=== PATIENT | female | born 1965 | race Caucasian/White ===

== ENCOUNTER 2018-09-26 17:31 | Inpatient (IN) | payer OTHER, SELFPAY ==
--- OUTSIDE RECORDS SUMMARY | 2018-09-26 17:37 | XMS REPORT | Clinical Summary ---
:1965 Author Organization [facility] Address [address] [place] [address] Care Team Providers Name Role Phone Asked, No Pcp Primary Care Provider Unavailable Allergies Active Allergy Reactions Severity Noted Date Comments Meperidine 08/16/2018 Hydromorphone 08/16/2018 States it made her amylase and lipase worse while in the hospital with last pancreatic episode Medications Medication Sig Dispensed Refills Start Date End Date Status Lactobacillus Take 1 tablet 90 tablet 0 08/21/2018 09/20/2018 acidoph-L.bulgar by mouth 3 (FLORANEX) 1 million (three) times a cell tablet day for 30 days. pantoprazole Take 1 tablet 60 tablet 0 08/21/2018 09/20/2018 (PROTONIX) 40 MG EC (40 mg total) tablet by mouth 2 (two) times a day for 30 days. levETIRAcetam (KEPPRA) Take 1 tablet 60 tablet 0 08/21/2018 09/20/2018 500 MG tablet (500 mg total) by mouth 2 (two) times a day for 30 days. 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 Encounters Date Type Specialty Care Team Description 08/28/20 Telephone Gastroenterology Jones Morgan MA 08/21/20 Patient Quality Falguni Calvo, 18 Outreach RN 08/20/20 Surgery Gastroenterology ESOPHAGOGASTRODUODENOSCOPY 18 (EGD) with cold bx 08/20/20 Anesthesia Gastroenterology [facility], 18 Event Andres Dawkins MD 08/16/20 [facility], Duodenal rupture (HCC) ( Primary Dx); 18 - Encounter Medicine Urban Diego MD Pain of upper abdomen 08/21/20 Rell, MD Germaine Au Bryan, MD 08/16/20 Travel 18 after 09/25/2017 Social History Tobacco Use Types Packs/Day Years Used Date Current Every Day Smoker Cigarettes 0.75 Smokeless Tobacco: Never Used Alcohol Use Drinks/Week oz/Week Comments No Alcohol Habits Answer Date Recorded How often do you have a drink containing alcohol? Never 08/16/2018 How many drinks containing alcohol do you have on a typical Not asked day when you are drinking? How often do you have six or more drinks on one occasion? Not asked Sex Assigned at Date Recorded Not on file Job Start Date Occupation Industry Not on file Not on file Not on file Travel History Travel Start Travel End No recent travel history available. Last Filed Vital Signs Vital Sign Reading Time Taken Blood Pressure 153/81 08/21/2018 4:44 PM [employer]IVE [employer]PERATIONS SUPERVISOR Pulse 70 08/21/2018 4:44 PM [employer]PER[employer] SUPERVISOR Temperature 36 C (96.8 F) 08/21/2018 4:44 PM [employer]PERATIONS SUPERVISOR Respiratory Rate 18 08/21/2018 4:44 PM [employer]PERATIONS SUPERVISOR Oxygen Saturation 100% 08/21/2018 4:44 PM [employer] OPERATIONS SUPERVISOR Inhaled Oxygen Concentration - - Weight 65.8 kg (145 lb) 08/21/2018 1:44 PM [employer]IVE [employer]NAL OPERATIONS SUPERVISOR Height 157.5 cm (5' 2") 08/16/2018 1:26 PM [employer]PERATIONS SUPERVISOR Body Mass Index 26.52 08/21/2018 1:44 PM [employer]IVE [employer]NAL [employer]PERATIONS SUPERVISOR Plan of Treatment Health Maintenance Due Date Last Done Comments CERVICAL CANCER SCREENING 1984 BREAST CANCER SCREENING 2013 COLON CANCER SCREENING 2013 SHINGLES VACCINES (1 of 2) 2013 INFLUENZA VACCINE 05/02/2018 Procedures Procedure Name Priority Date/Time Associated Comments Diagnosis MRI BRAIN W WO CONTRAST Routine 08/21/2018 Results for 2:21 PM [employer]ECTIVE [employer]PERATIONS SUPERVISOR this procedure are in the results section. EEG AWAKE/DROWSY LESS THAN 41 Routine 08/21/2018 Results for MIN 9:08 AM [employer]ECTIVE [employer]NAL OPERATIONS SUPERVISOR this procedure are in the results section. SURGICAL PATHOLOGY REQUEST Routine 08/20/2018 Results for 10:01 AM [employer]IVE [employer]NAL OPERATIONS SUPERVISOR this procedure are in the results section. ESOPHAGOGASTRODUODENOSCOPY (EGD) 08/20/2018 Duodenal 8:00 AM [employer]IVE [employer]NAL OPERATIONS SUPERVISOR rupture (HCC) HELICOBACTER PYLORI ABS Routine 08/19/2018 Results for 10:52 AM [employer]IVE [employer]NAL OPERATIONS SUPERVISOR this procedure are in the results section. HC COMPLETE BLD COUNT W/AUTO Routine 08/19/2018 Results for DIFF 5:20 AM [employer]IVE [employer]NAL OPERATIONS SUPERVISOR this procedure are in the results section. ESTIMATED GFR Routine 08/19/2018 Results for 4:00 AM [employer]IVE [employer]NAL OPERATIONS SUPERVISOR this procedure are in the results section. BASIC METABOLIC PANEL Routine 08/19/2018 Results for 4:00 AM [employer]IVE [employer]NAL OPERATIONS SUPERVISOR this procedure are in the results section. CLOSTRIDIUM DIFFICILE TOXIN Routine 08/18/2018 Results for 1:45 PM [employer]NAL OPERATIONS SUPERVISOR this procedure are in the results section. LIPID PANEL Routine 08/18/2018 Results for 4:00 AM [employer]IVE [employer]NAL OPERATIONS SUPERVISOR this procedure are in the results section. FL UGI W KUB Routine 08/17/2018 Results for 12:12 PM [employer]IVE [employer]NAL OPERATIONS SUPERVISOR this procedure are in the results section. PARTIAL THROMBOPLASTIN TIME Routine 08/17/2018 Results for (PTT) 5:15 AM [employer] OPERATIONS SUPERVISOR this procedure are in the results section. PROTHROMBIN TIME WITH INR Routine 08/17/2018 Results for 5:15 AM [employer]IVE [employer]NAL OPERATIONS SUPERVISOR this procedure are in the results section. HC COMPLETE BLD COUNT W/AUTO Routine 08/17/2018 Results for DIFF 5:15 AM [employer]IVE [employer]NAL OPERATIONS SUPERVISOR this procedure are in the results section. ESTIMATED GFR Routine 08/17/2018 Results for 4:00 AM [employer]IVE [employer]NAL OPERATIONS SUPERVISOR this procedure are in the results section. MAGNESIUM LEVEL Routine 08/17/2018 Results for 4:00 AM [employer]PERATIONS SUPERVISOR this procedure are in the results section. LACTIC ACID LEVEL Routine 08/17/2018 Results for 4:00 AM [employer]IVE [employer]NAL OPERATIONS SUPERVISOR this procedure are in the results section. COMPREHENSIVE METABOLIC PANEL Routine 08/17/2018 Results for 4:00 AM [employer] OPERATIONS SUPERVISOR this procedure are in the results section. POC GLUCOSE Routine 08/16/2018 Results for 6:25 PM [employer]PERATIONS SUPERVISOR this procedure are in the results section. CT ABDOMEN PELVIS W CONTRAST STAT 08/16/2018 Results for 2:49 PM [employer]PERATIONS SUPERVISOR this procedure are in the results section. URINALYSIS STAT 08/16/2018 Results for 2:14 PM [employer] OPERATIONS SUPERVISOR this procedure are in the results section. LIPASE LEVEL STAT 08/16/2018 Results for 1:44 PM [employer]PERATIONS SUPERVISOR this procedure are in the results section. ESTIMATED GFR STAT 08/16/2018 Results for 1:44 PM [employer] OPERATIONS SUPERVISOR this procedure are in the results section. HEPATIC FUNCTION PANEL STAT 08/16/2018 Results for 1:44 PM [employer]PERATIONS SUPERVISOR this procedure are in the results section. AMYLASE LEVEL STAT 08/16/2018 Results for 1:44 PM [employer]NAL [employer]PERATIONS SUPERVISOR this procedure are in the results section. COMPREHENSIVE METABOLIC PANEL STAT 08/16/2018 Results for 1:44 PM [employer]PERATIONS SUPERVISOR this procedure are in the results section. HC COMPLETE BLD COUNT W/AUTO STAT 08/16/2018 Results for DIFF 1:44 PM [employer] OPERATIONS SUPERVISOR this procedure are in the results section. ECG 12-LEAD Routine 08/16/2018 Results for 1:32 PM [employer]PERATIONS SUPERVISOR this procedure are in the results section. after 09/25/2017 Results MRI Brain W Wo Contrast (08/21/2018 2:21 PM PROTECTIVE [employer]NAL OPERATIONS SUPERVISOR) Narrative Performed At EXAMINATION: MRI BRAIN W WO CONTRAST [facility] COMPARISON: None CLINICAL HISTORY seizure protocol. TECHNIQUE: Multiplanar multisequence examination was performed with and without contrast FINDINGS: There is no definite diffusion restriction. There is ventricular and sulcal dilatation. There are extensive foci of T2 prolongation throughout the centrum semiovale bilaterally suggestive of chronic microvascular disease. There is no acute hemorrhage or extra-axial mass or fluid collection. There are no abnormal enhancing lesions within the brain parenchyma or the leptomeninges. There is mucosal thickening throughout the paranasal sinuses most prominent in the right maxillary and ethmoid region. IMPRESSION: Generalized mild involutional changes and numerous chronic microvascular ischemic foci in the centrum semiovale bilaterally. No abnormal enhancing lesions. Inflammatory mucosal thickening in the right maxillary and ethmoid sinuses without air-fluid levels. [facility]-[id number] Procedure Note Interface, Radiology Results Incoming - 08/21/2018 3:46 PM [employer]IVE [employer]NAL [employer]PERATIONS SUPERVISOR EXAMINATION: MRI BRAIN W WO CONTRAST COMPARISON: None CLINICAL HISTORY seizure protocol. TECHNIQUE: Multiplanar multisequence examination was performed with and without contrast FINDINGS: There is no definite diffusion restriction. There is ventricular and sulcal dilatation. There are extensive foci of T2 prolongation throughout the centrum semiovale bilaterally suggestive of chronic microvascular disease. There is no acute hemorrhage or extra-axial mass or fluid collection. There are no abnormal enhancing lesions within the brain parenchyma or the leptomeninges. There is mucosal thickening throughout the paranasal sinuses most prominent in the right maxillary and ethmoid region. IMPRESSION: Generalized mild involutional changes and numerous chronic microvascular ischemic foci in the centrum semiovale bilaterally. No abnormal enhancing lesions. Inflammatory mucosal thickening in the right maxillary and ethmoid sinuses without air-fluid levels. [facility]-[id number] Performing Organization Address City/State/Zipcode Phone Number [facility] [address] [place] [address] EEG (routine) (08/21/2018 9:08 AM PR[employer]ECTIVE [employer]NAL [employer]PERATIONS SUPERVISOR) Narrative Performed At EEG AWAKE AND DROWSY Date of Service: 08/21/18 Awake Recording: The occipital dominant rhythm is 10 Hz. 18-22 Hz activity is present in all regions. Sleep Recording:No sleep was recorded. Hyperventilation: Not performed. Photic Stimulation: Not performed. Impression The background activity is within the range of normal variation. No lateralized or epileptiform activity was recorded. ICD-10 Code: R569 Surgical pathology request (08/20/2018 10:01 AM PROTECTIVE [employer]NAL [employer]PERATIONS SUPERVISOR) [facility] DEPARTMENT OF PATHOLOGY AND GENOMIC MEDICINE Surgical pathology report See link below for PDF [facility] DEPARTMENT OF Lab Report PATHOLOGY AND GENOMIC MEDICINE Result status This is Final Report [facility] DEPARTMENT OF for [id number] PATHOLOGY AND GENOMIC MEDICINE Performing Organization Address City/State/Zipcode Phone Number [facility] DEPARTMENT OF PATHOLOGY AND [address] [place] [address] Helicobacter pylori Abs (08/19/2018 10:52 AM PROTECTIVE [employer]NAL [employer]PERATIONS SUPERVISOR) Helicobacter pylori antibodies Negative Negative [facility] Specimen Blood Performing Organization Address City/State/Zipcode Phone Number [facility] DEPARTMENT OF PATHOLOGY AND [address] [place] [address] [place] [address] CBC with platelet and differential (08/19/2018 5:20 AM PR[employer]IVE [employer]PERATIONS SUPERVISOR)Only the most recent of3 resultswithin the time period is included. WBC 5.37 4.50 - 11.00 k/uL [facility] RBC 3.82 (L) 4.20 - 5.50 m/uL [facility] HGB 12.4 12.0 - 16.0 g/dL [facility] HCT 36.4 (L) 37.0 - 47.0 % [facility] MCV 95.3 82.0 - 100.0 fL [facility] MCH 32.5 27.0 - 34.0 pg [facility] MCHC 34.1 31.0 - 37.0 g/dL [facility] RDW - SD 43.3 37.0 - 55.0 fL [facility] MPV 10.7 8.8 - 13.2 fL [facility] Platelet count 190 150 - 400 k/uL [facility] Nucleated RBC 0.00 /100 WBC [facility] Neutrophils 56.3 39.0 - 69.0 % [facility] Lymphocytes 29.2 25.0 - 45.0 % [facility] Monocytes 7.4 0.0 - 10.0 % [facility] Eosinophils 6.3 (H) 0.0 - 5.0 % [facility] Basophils 0.6 0.0 - 1.0 % [facility] Immature granulocytes 0.2Comment: "Immature 0.0 - 1.0 % [facility] granulocytes" [facility] (promyelocytes, myelocytes, metamyelocytes) Specimen Blood Performing Organization Address City/[facility] Phone Number [facility] DEPARTMENT OF PATHOLOGY AND [address] [place] [id number] [place] [phone] Estimated GFR (08/19/2018 4:00 AM PR[employer]IVE [employer]PERATIONS SUPERVISOR)Only the most recent of3 resultswithin the time period is included. Estimated GFR >=90 mL/min/1.73 m2 [facility] Comment: HOSPITAL CatergoryUnitsInterpretation G1 >=90 Normal or high G2 60-89Mildly decreased [id number] to moderately decreased Y2g04-68Kyjwabzqdj to severely decreased G4 15-29Severely decreased G5 <15Kidney failure The eGFR was calculated using the Chronic Kidney Disease Epidemiology Collaboration (CKD-EPI) equation. Interpretation is based on recommendations of the National Kidney Foundation-Kidney Disease Outcomes Quality Initiative (NKF-KDOQI) published in 2014. Specimen Plasma specimen Performing Organization Address City/[facility]/Zipcode Phone Number [facility] DEPARTMENT OF PATHOLOGY AND [address] [place], [place] [phone] [place] [phone] Basic metabolic panel (08/19/2018 4:00 AM PR[employer]IVE [employer]PERATIONS SUPERVISOR) Sodium 142 135 - 148 mEq/L [facility] Potassium 3.7 3.5 - 5.0 mEq/L [facility] Chloride 108 98 - 112 mEq/L [facility] CO2 23 (L) 24 - 31 mEq/L [facility] Anion gap 11@ANIO 7 - 15 mEq/L [facility] BUN 3 (L) 6 - 20 mg/dL [facility] Creatinine 0.69 0.50 - 0.90 mg/dL [facility] Glucose 103 (H) 65 - 99 mg/dL [facility] Calcium 8.6 8.3 - 10.2 mg/dL [facility] Specimen Plasma specimen Performing Organization Address City/State/Zipcode Phone Number [facility] DEPARTMENT OF PATHOLOGY AND [address] [place] [address] [address] C difficile toxin (08/18/2018 1:45 PM PR[employer]PERATIONS SUPERVISOR) Clostridium difficile No Clostridium difficle toxin present [facility] toxin Comment: HOSPITAL Specimen Information Specimen Source: Stool Specimen Site: Nonpreserved Specimen Stool - Nonpreserved Performing Organization Address City/State/Zipcode Phone Number [facility] DEPARTMENT OF PATHOLOGY AND [address] [place] [phone] [place] [phone] Lipid panel (08/18/2018 4:00 AM PR[employer]PERATIONS SUPERVISOR) Cholesterol 122 <200 mg/dL [facility] Triglycerides 138 <150 mg/dL [facility] HDL cholesterol 31 (L) >40 mg/dL [facility] LDL cholesterol 77Comment: Result obtained <100 mg/dL [facility] by direct LDL measurement [facility] Lipid panel interpretation SeeLane [facility] Comment: HOSPITAL Total Cholesterol (mg/dL) <200 Desirable 592-864Lyrhhgdqrw-qvhc >=240High Triglycerides (mg/dL) <150 Normal 900-148Wmdxxwslpg-piyy 200-499High >=500Very high HDL Cholesterol (mg/dL) <40Low (male) <40Low (female) LDL Cholesterol (mg/dL) <100 Optimal 100-129Near or above optimal 978-679Kfqszmyulx-fnbb 160-189High >=190Very high Risk Catergories that modify LDL goals. Risk CatergoriesLDL goal (mg/dL) CHD and CHD risk equivalent<100 (10-year risk >20%) Multiple (2+) risk factors <130 (10-year risk=<20%) 0-1 risk factors <160 (<10-year risk) Defining levels of lipids in metabolic syndrome Triglycerides>=150 mg/dL HDL Cholesterol Men<40 mg/dL Women<40 mg/dL Non-HDL cholesterol is a second target for therapy in persons with high triglycerides (>=200 mg/dL) Specimen Plasma specimen Performing Organization Address [facility] Phone Number [facility] DEPARTMENT OF PATHOLOGY AND [address] [place] [address] GENOMIC MEDICINE [facility] [address] [place] [address] FL UGI W KUB (08/17/2018 12:12 PM PR[employer]ECTIVE [employer]PERATIONS SUPERVISOR) Narrative Performed At EXAMINATION:FL UGI W KUB [facility] CLINICAL HISTORY:concern for duodenal perforation COMPARISON:CT abdomen dated 08/16/2018 Fluoroscopy time: 1.5 minutesSpot Films: 31Dose: 92.37 mGy FINDINGS: The patient swallowed water-soluble contrast without difficulty. There is mild diffuse thickening of the stomach and duodenal folds. There is no evidence of obstruction. There is mild delayed emptying of the stomach. The esophagus was without evidence of focal abnormality. There was no gastroesophageal reflux. IMPRESSION: Mild delayed gastric emptying and minimally thickened gastroduodenal folds consistent with gastritis/duodenitis. No evidence of perforation. [facility]-[id number] Procedure Note Interface, Radiology Results Incoming - 08/17/2018 12:21 PM PR[employer]IVE [employer]PERATIONS SUPERVISOR EXAMINATION: FL UGI W KUB CLINICAL HISTORY: concern for duodenal perforation COMPARISON: CT abdomen dated 08/16/2018 Fluoroscopy time: 1.5 minutes Spot Films: 31 Dose: 92.37 mGy FINDINGS: The patient swallowed water-soluble contrast without difficulty. There is mild diffuse thickening of the stomach and duodenal folds. There is no evidence of obstruction. There is mild delayed emptying of the stomach. The esophagus was without evidence of focal abnormality. There was no gastroesophageal reflux. IMPRESSION: Mild delayed gastric emptying and minimally thickened gastroduodenal folds consistent with gastritis/duodenitis. No evidence of perforation. [facility]-[id number] Performing Organization Address [facility]/Zipcode Phone Number [facility] [address] [place] [address] Partial thromboplastin time, activated (08/17/2018 5:15 AM PROTECTIVE [employer]NAL OPERATIONS SUPERVISOR) PTT 27.6 23.0 - 36.0 sec [facility] Comment: PTT therapeutic range for unfractionated heparin is 61.0-112.0 seconds which corresponds to Anti-Xa 0.3-0.7 U/ml. Specimen Blood Performing Organization Address City/[facility]/Zipcode Phone Number [facility] DEPARTMENT OF PATHOLOGY AND [address] [place] [phone] [place] [phone] Prothrombin time with INR (08/17/2018 5:15 AM PROTECTIVE [employer]NAL OPERATIONS SUPERVISOR) Prothrombin time 13.3 11.5 - 14.5 sec [facility] INR 1.0 [facility] Comment: HOSPITAL The International Normalized Ratio (INR) is a therapeutic monitoring tool for patients who are stable on oral anticoagulant therapy. An INR of 2.0-3.0 is suggested for deep vein thrombosis/pulmonary embolism. Specimen Blood Performing Organization Address City/[facility] Phone Number [facility] DEPARTMENT OF PATHOLOGY AND [address] [place] [phone] Magnesium level (08/17/2018 4:00 AM PROTECTIVE [employer]NAL OPERATIONS SUPERVISOR) Magnesium 2.0 1.6 - 2.6 mg/dL [facility] Specimen Plasma specimen Performing Organization Address City/[facility] Phone Number [facility] DEPARTMENT OF PATHOLOGY AND [address] [place] [phone] Lactic acid level (08/17/2018 4:00 AM PROTECTIVE [employer]NAL OPERATIONS SUPERVISOR) Lactic acid 0.8 0.5 - 2.2 mmol/L [facility] Specimen Plasma specimen Performing Organization Address City/[facility] Phone Number [facility] DEPARTMENT OF PATHOLOGY AND [address] [place] [phone] Comprehensive metabolic panel (08/17/2018 4:00 AM PROTECTIVE SIGNAL OPERATIONS SUPERVISOR)Only the most recent of2 resultswithin the time period is included. Sodium 142 135 - 148 mEq/L [facility] Potassium 4.2 3.5 - 5.0 mEq/L [facility] Chloride 106 98 - 112 mEq/L [facility] CO2 24 24 - 31 mEq/L [facility] Anion gap 12@ANIO 7 - 15 mEq/L [facility] BUN 7 6 - 20 mg/dL [facility] Creatinine 0.67 0.50 - 0.90 mg/dL [facility] Glucose 95 65 - 99 mg/dL [facility] Calcium 9.2 8.3 - 10.2 mg/dL [facility] Protein 6.5 6.3 - 8.3 g/dL [facility] Comment: HOSPITAL [place] 4.6-7.0 g/dL 1 week 4.4-7.6 g/dL 7 months-1year5.1-7.3 g/dL 1-2 years5.6-7.5 g/dL >3 years6.0-8.0 g/dL 18-150 6.3-8.3 g/dL Albumin 2.8 (L) 3.5 - 5.0 g/dL [facility] A/G ratio 0.8 0.7 - 3.8 [facility] Alkaline phosphatase 72 35 - 104 U/L [facility] AST 18 10 - 35 U/L [facility] ALT 15 5 - 50 U/L [facility] Total bilirubin 0.6 0.0 - 1.2 mg/dL [facility] Specimen Plasma specimen Performing Organization Address City/[facility] Phone Number [facility] DEPARTMENT OF PATHOLOGY AND [address] [place] [address] [address] POC glucose (08/16/2018 6:25 PM PROTECTIVE SIGNAL OPERATIONS SUPERVISOR) POC glucose 95 65 - 99 mg/dL [facility] Comment: EMER[facility]Y CARE CENTER [facility] Notified RN Meter ID: [id number] Forms Designer: Tavon Morataya Performing Organization Address City/[facility]/Zipcode Phone Number DEPARTMENT OF PATHOLOGY AND [address] [place] [address] EMERGENCY CARE [facility] [phone] [place] [address] Abdomen Pelvis W Contrast (08/16/2018 2:49 PM PROTECTIVE SIGNAL OPERATIONS SUPERVISOR) Narrative Performed At EXAMINATION:CT ABDOMEN PELVIS W CONTRAST [facility] CLINICAL HISTORY:Nauseavomiting, hx of pancreatitis per patient TECHNIQUE: Multiple axial images of the abdomen and pelvis were obtained following intravenous administration of iodinated contrast. CT imaging was performed with iterative reconstruction technique and/or automated exposure control to reduce radiation dose. COMPARISON: None FINDINGS: LUNG BASES: Hypoventilatory changes are present in the lung bases. ABDOMEN: Liver: Subcentimeter left hepatic lobe hypodensity (image 36 series 2) is too small to characterize but statistically likely benign. Gallbladder: Prior cholecystectomy. Spleen: The spleen is not enlarged. Pancreas: The pancreas is unremarkable, but there are mild inflammatory stranding is adjacent to the pancreatic head and uncinate process (see below is present Adrenal Glands: The adrenal glands are unremarkable. Kidneys: The kidneys are unremarkable. No mass, hydronephrosis or calculi. Vascular: Extensive calcified and noncalcified atherosclerosis of the abdominal aorta. Nodes: There are mildly enlarged central and right mesenteric lymph nodes in the region of inflammation described below. Bowel: Moderate wall thickening of the second portion of the duodenum with a surrounding tubular fluid density lesion. The total diameter of the abnormal region (including both the duodenum and the surrounding fluid attenuation structure) is 2.6 x 3.2 x 4.1 cm. No free gas is identified in the abdomen. Ascites/fluid collections: No ascites. PELVIS: 2.3 cm left adnexal cyst. MUSCULOSKELETAL: No suspicious osseous lesions. IMPRESSION: 1.Moderate wall thickening of the second portion of the duodenum with a surrounding tubular fluid attenuation lesion. This could represent a contained rupture (e.g. from duodenal ulcer) or an inflamed duodenal diverticulum. Superinfected pseudocyst from prior pancreatitis is felt less likely. This could be further assessed with endoscopy. 2.Surrounding mild lymphadenopathy, likely reactive. Inflammatory changes surround the pancreatic head and uncinate process; this is felt to be reactive rather than secondary to intrinsic pancreatic inflammation. [id number] Procedure Note Hm Interface, Radiology Results Incoming - 08/16/2018 3:10 PM PROTECTIVE SIGNAL OPERATIONS SUPERVISOR EXAMINATION: CT ABDOMEN PELVIS W CONTRAST CLINICAL HISTORY: Nausea vomiting, hx of pancreatitis per patient TECHNIQUE: Multiple axial images of the abdomen and pelvis were obtained following intravenous administration of iodinated contrast. CT imaging was performed with iterative reconstruction technique and/or automated exposure control to reduce radiation dose. COMPARISON: None FINDINGS: LUNG BASES: Hypoventilatory changes are present in the lung bases. ABDOMEN: Liver: Subcentimeter left hepatic lobe hypodensity (image 36 series 2) is too small to characterize but statistically likely benign. Gallbladder: Prior cholecystectomy. Spleen: The spleen is not enlarged. Pancreas: The pancreas is unremarkable, but there are mild inflammatory stranding is adjacent to the pancreatic head and uncinate process (see below is present Adrenal Glands: The adrenal glands are unremarkable. Kidneys: The kidneys are unremarkable. No mass, hydronephrosis or calculi. Vascular: Extensive calcified and noncalcified atherosclerosis of the abdominal aorta. Nodes: There are mildly enlarged central and right mesenteric lymph nodes in the region of inflammation described below. Bowel: Moderate wall thickening of the second portion of the duodenum with a surrounding tubular fluid density lesion. The total diameter of the abnormal region (including both the duodenum and the surrounding fluid attenuation structure) is 2.6 x 3.2 x 4.1 cm. No free gas is identified in the abdomen. Ascites/fluid collections: No ascites. PELVIS: 2.3 cm left adnexal cyst. MUSCULOSKELETAL: No suspicious osseous lesions. IMPRESSION: 1. Moderate wall thickening of the second portion of the duodenum with a surrounding tubular fluid attenuation lesion. This could represent a contained rupture (e.g. from duodenal ulcer) or an inflamed duodenal diverticulum. Superinfected pseudocyst from prior pancreatitis is felt less likely. This could be further assessed with endoscopy. 2. Surrounding mild lymphadenopathy, likely reactive. Inflammatory changes surround the pancreatic head and uncinate process; this is felt to be reactive rather than secondary to intrinsic pancreatic inflammation. [id number] Performing Organization Address City/[facility] Phone Number [facility] [address] [place] [address] Urinalysis (08/16/2018 2:14 PM PROTECTIVE SIGNAL OPERATIONS SUPERVISOR) Glucose, UA Negative Negative [facility] Bilirubin, UA Negative Negative [facility] Ketones, UA 1+ (A) Negative [facility] Specific gravity, UA 1.025 1.001 - 1.035 [facility] Blood, UA Negative Negative [facility] pH, UA 5.0 5.0 - 8.5 [facility] Protein, UA Negative Negative [facility] Urobilinogen, UA <2.0 <2.0 [facility] Nitrite, UA Negative Negative [facility] Leukocyte esterase, UA Negative Negative [facility] Color, UA Yellow [facility] Appearance, UA Slightly Hazy [facility] Specimen Urine Performing Organization Address City/[facility]/Zipcode Phone Number DEPARTMENT OF PATHOLOGY AND [address] [place] [address] [facility] Lipase level (08/16/2018 1:44 PM PROTECTIVE SIGNAL OPERATIONS SUPERVISOR) Lipase 34 13 - 60 U/L [facility] Specimen Plasma specimen Performing Organization Address City/[facility] Phone Number [facility] DEPARTMENT OF PATHOLOGY AND [address] [place] [id number] [facility] MEDICINE [address] [address] Amylase level (08/16/2018 1:44 PM PROTECTIVE SIGNAL OPERATIONS SUPERVISOR) Amylase 18 14 - 97 U/L [facility] Specimen Plasma specimen Performing Organization Address City/[facility] Phone Number DEPARTMENT OF PATHOLOGY AND [address] [place] [address] EMERGENCY CARE CENTER Hepatic function panel (08/16/2018 1:44 PM PROTECTIVE SIGNAL OPERATIONS SUPERVISOR) Albumin 4.0 3.3 - 5.5 g/dL [facility] Alkaline phosphatase 86 42 - 141 U/L [facility] ALT 29 10 - 47 U/L [facility] AST 27 11 - 38 U/L [facility] Bilirubin direct 0.3 0.0 - 0.3 mg/dL [facility] Total bilirubin 0.5 0.2 - 1.6 mg/dL [facility] Protein 8.2 (H) 6.4 - 8.1 g/dL [facility] Specimen Plasma specimen Performing Organization Address City/[facility] Phone Number DEPARTMENT OF PATHOLOGY AND [address] [place] [address] EMERGENCY [facility]ARE CENTER ECG 12 lead (08/16/2018 1:32 PM PROTECTIVE SIGNAL OPERATIONS SUPERVISOR) Ventricular rate 87 [facility] Atrial rate 87 [facility] VT interval 138 [facility] QRSD interval 70 [facility] QT interval 380 [facility] QTC interval 457 [facility] P axis 1 74 [facility] QRS axis 1 53 [facility] M[facility] T wave axis 71 [facility] EKG impression Normal sinus rhythm-Possible Left atrial [facility] enlargement-Borderline ECG-No previous ECGs available- Narrative Performed At Performing Organization Address City/State/Zipcode Phone Number [facility] M[facility] [address] [place] [address] after 09/25/2017 Insurance Payer Benefit Plan / Group Subscriber ID Type Phone Address PENDING MEDICAID PENDING DISABILITY MEDICAID xxxxxxxxx Medicaid COVERAGE Advance Directives Patient has advance care planning documents on file. For more information, please contact:Scottie Mckeon[address] [place] [address]
--- OUTSIDE RECORDS SUMMARY | 2018-09-26 17:37 | XMS REPORT ---
:1965 [facility] Organization [facility] Address [address] [place] [address] [address]. [address] [place] [address] Care Team Providers Name Role Phone Unavailable Unavailable Unavailable Problems This patient has no known problems. Allergies, Adverse Reactions, Alerts This patient has no known allergies or adverse reactions. Medications This patient has no known medications.
[2018-09-26] MEDS ORDERED: PROMETHAZINE 25 MG/ML VIAL ONE (18:05)
[2018-09-26] MEDS ORDERED: NA CHLORIDE 0.9% 50 ML IV ONE (18:06)
[2018-09-26] MEDS ORDERED: MORPHINE 4 MG/ML SYR ONE ×2 (18:06→22:43)
[2018-09-26] MEDS ORDERED: NA CHLORIDE 0.9% 1,000 ML ONE (18:06)
[2018-09-26 18:44] LABS: ALT/SGPT 20 U/L (12-78); AST/SGOT 18 U/L (15-37); Albumin 3.3 g/dL (3.4-5.0); Alkaline Phosphatase 84 U/L (45-117); BUN Blood Urea Nitrogen 10 mg/dL (7-18); Bicarbonate 23 mmol/L (21-32); Bilirubin Direct < 0.1 mg/dL (0-0.2); Bilirubin Total 0.3 mg/dL (0.2-1.0); Glucose Level 107 mg/dL (74-106); Lipase 244 U/L (73-393); Potassium 3.9 mmol/L (3.5-5.1); Protein, Total 7.6 g/dL (6.4-8.2); Sodium Level 139 mmol/L (136-145)
[2018-09-26 19:12] LABS: Absolute Lymphocytes (CBC) 2.7 K/uL (0.7-4.9); Absolute Monocytes 0.5 K/uL (0.1-1.3); Absolute Neutrophil 7.4 K/uL (1.8-8.0); Basophils % 0.8 % (0-1.3); Eosinophils % 2.3 % (0-4.4); Lymphocytes % 24.6 % (15.3-44.8); MPV 8.6 fL (7.6-11.3); Monocytes % 4.2 % (3.3-12.3); RBC Red Blood Cell Count 4.14 M/uL (3.86-4.86)
[2018-09-26 19:13] LABS: Hematocrit 40.3 % (36.0-45.0)
--- NOTE | 2018-09-26 19:36 | RAD REPORT ---
EXAM DESCRIPTION: CTAbdomen Pelvis W Contrast - 09/26/2018 7:28 pm CLINICAL HISTORY: Abdominal pain. LUQ pain COMPARISON: Abdomen Pelvis W Contrast dated 11/28/2017; Abdomen Pelvis W Contrast dated 10/24/2016 ; CT ABD PELVIS W CONTRAST dated 11/10/2015 TECHNIQUE: Biphasic CT imaging of the abdomen and pelvis was performed with 100 ml non-ionic IV cont rast. All CT scans are performed using dose optimization technique as appropriate and may include automated exposure control or mA/KV adjustment according to patient size. FINDINGS: Linear subsegmental atelectasis is present in both posterior lung bases. A small hiatal he rnia is present. The liver, spleen, adrenal glands and kidneys are within normal limits. Mild edematous appearance is seen to the pancreatic head and uncinate process with small surrounding lymph nodes. Cholecystectomy clips are seen. No bowel obstruction, free air, free fluid or abscess. Aortic atherosclerosis. The appendix is normal . Small fat containing umbilical hernia. No evidence of significant lymphadenopathy. No suspicious bony findings. IMPRESSION: Mild edematous appearance in the region of the pancreatic head and uncinate process is s een with several surrounding lymph nodes. This likely represents acute pancreatitis, correlation with amylase and lipase levels is suggested.
--- NOTE | 2018-09-26 21:06 | EDPHYS ---
Physician Documentation [facility] Name: Pawel Burroughs Age: 53 yrs Sex: Female : 1965 Arrival Date: 09/26/2018 Time: 17:38 Bed 27 Private MD: ED Physician Frank Wheatley HPI: 09/26 21:30 This 53 yrs old Female presents to ER via EMS with complaints of Abdominal pm1 pain. 21:30 The patient presents with abdominal pain in the left upper quadrant. Onset: The pm1 symptoms/episode began/occurred today. The symptoms do not radiate. Associated signs and symptoms: Pertinent positives: nausea, Pertinent negatives: chest pain, constipation, dysuria, fever, shortness of breath, vomiting. The symptoms are described as sharp. Modifying factors: The symptoms are alleviated by nothing, the symptoms are aggravated by nothing. Severity of pain: in the emergency department the pain is actually worse. The patient has experienced similar episodes in the past, a few times. The patient has not recently seen a physician, and does not have an established primary care provider. Feels like her prior acute pancreatitis . AUTOCAD: 22:37 LMP N/A - Post-menopause tl3 Historical: - Allergies: 17:47 Demerol; mg2 - Home Meds: 17:47 pantoprazole oral oral [Active]; mg2 - PMHx: 17:47 Pancreatitis; Rheumatoid Arthritis; Seizures; TIA; mg2 - PSHx: 17:47 Cholecystectomy; mg2 - Immunization history:: Flu vaccine is not up to date. - Social history:: Smoking status: Patient uses tobacco products, smokes one-half pack cigarettes per day, Patient/guardian denies using alcohol, street drugs, IV drugs. - Ebola Screening: : No symptoms or risks identified at this time. ROS: 21:30 Constitutional: Negative for fever, chills, and weight loss, Eyes: Negative for injury, pm1 pain, redness, and discharge, ENT: Negative for injury, pain, and discharge, Neck: Negative for injury, pain, and swelling, Cardiovascular: Negative for chest pain, palpitations, and edema, Respiratory: Negative for shortness of breath, cough, wheezing, and pleuritic chest pain. 21:30 Back: Negative for injury and pain, : Negative for injury, bleeding, discharge, and swelling, MS/Extremity: Negative for injury and deformity, Skin: Negative for injury, rash, and discoloration, Neuro: Negative for headache, weakness, numbness, tingling, and seizure. 21:30 Abdomen/GI: Positive for abdominal pain, nausea, Negative for vomiting, diarrhea, constipation. Exam: 21:30 Constitutional: This is a well developed, well nourished patient who is awake, alert, pm1 and in no acute distress. Head/Face: Normocephalic, atraumatic. Eyes: Pupils equal round and reactive to light, extra-ocular motions intact. Lids and lashes normal. Conjunctiva and sclera are non-icteric and not injected. Cornea within normal limits. Periorbital areas with no swelling, redness, or edema. ENT: Nares patent. No nasal discharge, no septal abnormalities noted. Tympanic membranes are normal and external auditory canals are clear. Oropharynx with no redness, swelling, or masses, exudates, or evidence of obstruction, uvula midline. Mucous membranes moist. Neck: Trachea midline, no thyromegaly or masses palpated, and no cervical lymphadenopathy. Supple, full range of motion without nuchal rigidity, or vertebral point tenderness. No Meningismus. Chest/axilla: Normal chest wall appearance and motion. Nontender with no deformity. No lesions are appreciated. Cardiovascular: Regular rate and rhythm with a normal S1 and S2. No gallops, murmurs, or rubs. Normal PMI, no JVD. No pulse deficits. Respiratory: Lungs have equal breath sounds bilaterally, clear to auscultation and percussion. No rales, rhonchi or wheezes noted. No increased work of breathing, no retractions or nasal flaring. 21:30 Back: No spinal tenderness. No costovertebral tenderness. Full range of motion. Skin: Warm, dry with normal turgor. Normal color with no rashes, no lesions, and no evidence of cellulitis. MS/ Extremity: Pulses equal, no cyanosis. Neurovascular intact. Full, normal range of motion. 21:30 Abdomen/GI: Inspection: abdomen appears normal, Bowel sounds: normal, Palpation: soft, moderate abdominal tenderness, in the left upper quadrant, mass, is not appreciated, rebound tenderness, is not appreciated. 21:30 Neuro: Orientation: is normal, Motor: is normal, moves all fours. Vital Signs: 17:42 BP 144 / 88; Pulse 79; Resp 20; Temp 98.4; Pulse Ox 95% on R/A; Weight 63.5 kg; Height mg2 5 ft. 1 in. (154.94 cm); Pain 4/10; 19:40 BP 131 / 66; Pulse 82; Resp 18; Pulse Ox 96% on R/A; tl3 20:32 BP 131 / 78; Pulse 75; Resp 18; Pulse Ox 95% on R/A; tl3 17:42 Body Mass Index 26.45 (63.50 kg, 154.94 cm) mg2 MDM: 17:46 Patient medically screened. pm1 21:03 Data reviewed: vital signs. Data interpreted: Pulse oximetry: on room air is 95 %. pm1 Interpretation: normal. 21:03 Counseling: I had a detailed discussion with the patient and/or guardian regarding: the pm1 historical points, exam findings, and any diagnostic results supporting the discharge/admit diagnosis, lab results, radiology results, the need for further work-up and treatment in the hospital. 21:03 Physician consultation: Ryder Hugo MD was contacted at 21:04, regarding admission, pm1 patient's condition, and will see patient in ED. 09/26 17:46 Order name: Basic Metabolic Panel pm1 09/26 17:46 Order name: CBC with Diff; Complete Time: 19:19 pm1 09/26 17:46 Order name: Hepatic Function pm1 09/26 17:46 Order name: Lipase; Complete Time: 18:57 pm1 09/26 17:46 Order name: Basic Metabolic Panel; Complete Time: 18:57 EDMS 09/26 17:46 Order name: IV Saline Lock; Complete Time: 17:48 pm1 09/26 17:46 Order name: Liver (Hepatic) Function; Complete Time: 18:57 EDMS 09/26 17:53 Order name: CT Abd/Pelvis - W/Contrast: IV contrast only; Complete Time: 19:40 pm1 09/26 21:31 Order name: Amylase Level; Complete Time: 22:14 EDMS 09/26 17:46 Order name: Labs collected and sent; Complete Time: 17:48 pm1 Administered Medications: 18:05 Drug: morphine 4 mg Route: IVP; Site: right forearm; mg2 19:38 Follow up: Response: No adverse reaction tl3 18:05 Drug: Phenergan 25 mg Route: IVP; Site: right forearm; mg2 19:38 Follow up: Response: No adverse reaction tl3 18:06 Drug: NS 0.9% 1000 ml Route: IV; Rate: 1000 ml; Site: right forearm; mg2 19:39 Follow up: IV Status: Completed infusion; IV Intake: 1000ml tl3 22:38 Drug: morphine 2 mg Route: IVP; Infused Over: 2 mins; Site: right forearm; tl3 22:38 Follow up: Response: No adverse reaction; Medication administered at discharge. tl3 Disposition: 09/27 09:42 Co-signature as Attending Physician, Frank Wheatley MD I agree with the assessment and kdr plan of care. Disposition: 09/26/18 21:05 Hospitalization ordered by Ryder Hugo for Inpatient Admission. Preliminary diagnosis is Acute pancreatitis. - Bed requested for Telemetry/MedSurg (Inpatient). - Status is Inpatient Admission. tl3 - Condition is Stable. - Problem is new. - Symptoms have improved. UTI on Admission? No Signatures: Dispatcher [employer] EDAZ Frank Wheatley MD MD kdr Yenifer Peraza RN RN fc Don Chapa, LICENSED PROSTHETIST LICENSED PROSTHETIST pm1 Evelia Breen RN RN tl3 Timi Meredith RN RN mg2 Corrections: (The following items were deleted from the chart) 09/26 21:05 17:46 Creatinine for Radiology+C.LAB.BRZ ordered. [facility] EDAZ 22:14 21:05 Hospitalization Ordered by Ryder Hugo MD for Inpatient Admission. Preliminary fc diagnosis is Acute pancreatitis. Bed requested for Telemetry/MedSurg (Inpatient). Status is Inpatient Admission. Condition is Stable. Problem is new. Symptoms have improved. UTI on Admission? No. pm1 22:40 22:14 09/26/2018 21:05 Hospitalization Ordered by Ryder Hugo MD for Inpatient tl3 Admission. Preliminary diagnosis is Acute pancreatitis. Bed requested for Telemetry/MedSurg (Inpatient). Status is Inpatient Admission. Condition is Stable. Problem is new. Symptoms have improved. UTI on Admission? No. fc
--- NOTE | 2018-09-26 21:06 | ER ---
Nurse's Notes 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 was treated in [facility] before Thanksgiving for Perforated Pancreatitis. Transition of care: patient was not received from another setting of care. Onset of symptoms was September 26, 2018 at 15:40. Risk Assessment: Do you want to hurt yourself or someone else? Patient reports no desire to harm self or others. Initial Sepsis Screen: Does the patient meet any 2 criteria? No. Patient's initial sepsis screen is negative. Does the patient have a suspected source of infection? No. Patient's initial sepsis screen is negative. Care prior to arrival: Medication(s) given: Normal saline infusion, 1000 mL, zofran 4 mg, fentanyl 100 mcg. 17:38 Method Of Arrival: EMS: [facility] mg2 17:38 Acuity: SUNDAY 3 mg2 Triage Assessment: 22:37 General: Appears uncomfortable, Behavior is cooperative, appropriate for age, anxious. tl3 CRA OFFICER: 22:37 LMP N/A - Post-menopause tl3 Historical: - Allergies: 17:47 Demerol; mg2 - Home Meds: 17:47 pantoprazole oral oral [Active]; mg2 - PMHx: 17:47 Pancreatitis; Rheumatoid Arthritis; Seizures; TIA; mg2 - PSHx: 17:47 Cholecystectomy; mg2 - Immunization history:: Flu vaccine is not up to date. - Social history:: Smoking status: Patient uses tobacco products, smokes one-half pack cigarettes per day, Patient/guardian denies using alcohol, street drugs, IV drugs. - Ebola Screening: : No symptoms or risks identified at this time. Screenin:48 Abuse screen: Denies threats or abuse. Denies injuries from another. Nutritional mg2 screening: No deficits noted. Tuberculosis screening: No symptoms or risk factors identified. Fall Risk IV access (20 points). Assessment: 19:40 Reassessment: No changes from previously documented assessment. tl3 19:40 Reassessment: Patient and/or family updated on plan of care and expected duration. Pain tl3 level reassessed. Patient is alert, oriented x 3, equal unlabored respirations, skin warm/dry/pink. 19:41 Reassessment: Don at bedside discussing POC. Pain: Complains of pain in left upper tl3 quadrant and left lower quadrant. 20:32 Reassessment: Patient appears in no apparent distress at this time. No changes from tl3 previously documented assessment. Patient and/or family updated on plan of care and expected duration. Pain level reassessed. Patient is alert, oriented x 3, equal unlabored respirations, skin warm/dry/pink. pt sleeping quietly, family at bedside. Vital Signs: 17:42 BP 144 / 88; Pulse 79; Resp 20; Temp 98.4; Pulse Ox 95% on R/A; Weight 63.5 kg; Height mg2 5 ft. 1 in. (154.94 cm); Pain 4/10; 19:40 BP 131 / 66; Pulse 82; Resp 18; Pulse Ox 96% on R/A; tl3 20:32 BP 131 / 78; Pulse 75; Resp 18; Pulse Ox 95% on R/A; tl3 17:42 Body Mass Index 26.45 (63.50 kg, 154.94 cm) mg2 ED Course: 17:38 Patient arrived in ED. mg2 17:42 Triage completed. mg2 17:45 Don Chapa NP is PHCP. pm1 17:45 Frank Wheatley MD is Attending Physician. pm1 17:48 No provider procedures requiring assistance completed. Maintain EMS IV. Dressing mg2 intact. Good blood return noted. Site clean \T\ dry. Gauge \T\ site: 20 \T\ RFA. IV is patent, is intact. 17:49 Patient has correct armband on for positive identification. Pulse ox on. NIBP on. Door mg2 closed. Warm blanket given. 17:49 Arm band placed on. mg2 17:54 Radiology exam delayed due to lab results not completed at this time. (BUN/Creatinine). jg6 18:48 Evelia Breen, MYAH is Primary Nurse. tl3 19:[address] jg6 19:25 CT completed. Patient tolerated procedure well. Patient moved back from CT. vm2 19:28 CT Abd/Pelvis - W/Contrast: IV contrast only In Process Unspecified. EDMS 19:39 Hepatic Function Sent. tl3 21:05 Ryder Hugo MD is Hospitalizing Provider. pm1 22:39 Basic Metabolic Panel Sent. tl3 22:39 Patient admitted, IV remains in place. tl3 Administered Medications: 18:05 Drug: morphine 4 mg Route: IVP; Site: right forearm; mg2 19:38 Follow up: Response: No adverse reaction tl3 18:05 Drug: Phenergan 25 mg Route: IVP; Site: right forearm; mg2 19:38 Follow up: Response: No adverse reaction tl3 18:06 Drug: NS 0.9% 1000 ml Route: IV; Rate: 1000 ml; Site: right forearm; mg2 19:39 Follow up: IV Status: Completed infusion; IV Intake: 1000ml tl3 22:38 Drug: morphine 2 mg Route: IVP; Infused Over: 2 mins; Site: right forearm; tl3 22:38 Follow up: Response: No adverse reaction; Medication administered at discharge. tl3 Intake: 19:39 IV: 1000ml; Total: 1000ml. tl3 Outcome: 21:05 Decision to Hospitalize by Provider. pm1 22:39 Admitted to Tele accompanied by tech, via wheelchair, with chart, Report called to tl3 MYAH Pruett 22:39 Condition: stable 22:39 Instructed on the need for admit. 22:40 Patient left the ED. tl3 Signatures: Dispatcher [employer] EDNJ Don Chapa NP SESSIONS CLERK pm1 Ayesha Tsang 2 Evelia Breen RN RN tl3 Timi Meredith RN RN mg2 Nakita Llamas6
--- NOTE | 2018-09-26 21:47 | P.HP ---
Certification for Inpatient Patient admitted to: Inpatient With expected LOS: >2 Midnights Practitioner: I am a practitioner with admitting privileges, knowledge of patient current condition, hospital course, and medical plan of care. Services: Services provided to patient in accordance with Admission requirements found in Title 42 Section 412.3 of the Code of Federal Regulations Patient History Date of Service: 09/26/18 Reason for admission: pancreatitis History of Present Illness: Ms Burroughs is a 53 years old woman with history of seizure disorder, s/p cholesystectomy, previous admission at [facility] due to pancreatitis, according to the patient she also had duodenal ulcers found in an EGD. She came to ED complaining of abdominal pain, localized in epigastrium and LUQ radiated to her balck. Intensity was 8/10, associated with nausea and vomiting. She report subjective fever. The pain started this afternoon. Lab work in ER shows normal WBC count, normal lipase, however, CT abd/pelvis report pancreatic head wit inflammatory signs, surrounded with lymph nodes, consistent with acute pancreatitis. Allergies meperidine HCl [From Demerol] Allergy (Verified 10/24/16 18:31) Unknown Penicillins Allergy (Verified 11/09/15 11:27) Rash Home medications list reviewed: Yes Home Medications: Tramadol HCl [Ultram] 50 mg PO TID PRN #20 tablet 11/01/16 - Past Medical/Surgical History Diabetic: No -: smoker -: Alcohol history -: Rheumatoid arthritis -: Pancreatitis -: Laparoscopic cholecystectomy -: Bilateral knee replacement - Family History mom -: Diabetes, Cancer dad -: Cancer - Social History Smoking Status: Current every day smoker Counseled patient to stop smoking for: less than 10 minutes Smoking therapy provided: Yes Patient receptive to therapy: Yes Alcohol use: No CD- Drugs: No Caffeine use: Yes Place of Residence: Home Review of Systems 10-point ROS is otherwise unremarkable Physical Examination - Physical Exam General: Alert, In no apparent distress HEENT: Atraumatic, PERRLA, Mucous membr. moist/pink, EOMI, Sclerae nonicteric Neck: Supple, 2+ carotid pulse no bruit, No LAD, Without JVD or thyroid abnormality Respiratory: Clear to auscultation bilaterally, Normal air movement Cardiovascular: Regular rate/rhythm, Normal S1 S2 Gastrointestinal: Normal bowel sounds, Tenderness (light tenderness to palpation in LUQ.) Musculoskeletal: No tenderness Integumentary: No rashes Neurological: Normal speech, Normal strength at 5/5 x4 extr, Normal tone, Normal affect Lymphatics: No axilla or inguinal lymphadenopathy - Studies Laboratory Data (last 24 hrs) 09/26/18 17:46: Creatinine Cancelled 09/26/18 17:45: WBC 10.9, Hgb 14.2, Hct 40.3, Plt Count 260 09/26/18 17:45: Sodium 139, Potassium 3.9, BUN 10, Creatinine 0.65, Glucose 107 H, Total Bilirubin 0.3, AST 18, ALT 20, Alkaline Phosphatase 84, Lipase 244 Assessment and Plan - Problems (Diagnosis) (1) Seizure-like activity Onset Date: 04/03/17 Current Visit: No Status: Acute (2) Rheumatoid arthritis Onset Date: 04/03/17 Current Visit: No Status: Chronic Qualifiers: Rheumatoid arthritis location: unspecified site Rheumatoid factor presence : unspecified presence Qualified Code(s): M06.9 - Rheumatoid arthritis, unspecified (3) Tobacco abuse Current Visit: No Status: Chronic (4) Acute pancreatitis Onset Date: 11/29/17 Current Visit: No Status: Resolved Qualifiers: Pancreatitis type: alcohol induced Acute pancreatitis complication: unspecified Qualified Code(s): K85.20 - Alcohol induced acute pancreatitis without necrosis or infection - Plan The patient will be admitted to the hospital due to acute pancreatitis. Will keep her NPO, start IV fluids, and symptomatic medication. Will check amylase level, since lipase is normal. The patient states that her pancreas and liver problems started after she began treatment with DEMARDs for RA. - Advance Directives Does patient have a Living Will: No Does patient have a Durable POA for Healthcare: No - Code Status/Comfort Care Code Status Assessed: Yes Code Status: Full Code
[2018-09-26 23:12] VITALS: BMI 26.5
[2018-09-26] MEDS ORDERED: ONDANSETRON 4 MG/2 ML VIAL IV PRN (23:21)
[2018-09-26] MEDS ORDERED: ACETAMINOPHEN 500 MG TAB PO PRN (23:21)
[2018-09-26] MEDS ORDERED: MORPHINE 2 MG/ML SYR IV PRN (23:21)
[2018-09-27] MEDS: NA CHLORIDE 0.9% 1,000 ML IV SCH ×2 (00:52→10:04)
[2018-09-27 05:50] LABS: Absolute Lymphocytes (CBC) 2.4 K/uL (0.7-4.9); Absolute Monocytes 0.4 K/uL (0.1-1.3); Absolute Neutrophil 3.7 K/uL (1.8-8.0); Basophils % 0.3 % (0-1.3); Eosinophils % 3.8 % (0-4.4); Hematocrit 34.9 % (36.0-45.0); Lymphocytes % 35.4 % (15.3-44.8); MPV 8.8 fL (7.6-11.3); Monocytes % 6.3 % (3.3-12.3); RBC Red Blood Cell Count 3.69 M/uL (3.86-4.86)
[2018-09-27 06:08] LABS: ALT/SGPT 15 U/L (12-78); AST/SGOT 10 U/L (15-37); Albumin 2.5 g/dL (3.4-5.0); Alkaline Phosphatase 63 U/L (45-117); Amylase Level 20 U/L (25-115); BUN Blood Urea Nitrogen 8 mg/dL (7-18); Bicarbonate 28 mmol/L (21-32); Bilirubin Total 0.3 mg/dL (0.2-1.0); Glucose Level 87 mg/dL (74-106); Lipase 179 U/L (73-393); Potassium 4.2 mmol/L (3.5-5.1); Protein, Total 5.8 g/dL (6.4-8.2); Sodium Level 144 mmol/L (136-145)
[2018-09-27 06:17] LABS: Urine Appearance CLEAR; Urine Bilirubin NEGATIVE (NEG); Urine Blood NEGATIVE (NEG); Urine Color YELLOW; Urine Glucose NEGATIVE (NEG); Urine Protein NEGATIVE (NEG); Urine Specific Gravity >=1.030 (1.005-1.030); Urine Urobilinogen 0.2 mg/dL (0.2-1.0)
[2018-09-27 06:18] LABS: Urine Microscopic Reflex NO UMIC
[2018-09-27] MEDS ORDERED: SODIUM CHLORIDE 0.9% 10ML INJ IV PRN (08:05)
[2018-09-27] MEDS ORDERED: IPRATROPIUM BROM 0.5MG/2.5ML NEB PRN (08:10)
[2018-09-27] MEDS ORDERED: ALBUTEROL 2.5 MG/3 ML NEB SOL NEB PRN (08:10)
[2018-09-27] MEDS ORDERED: NICOTINE 14 MG/PAT TD SCH (09:00)
[2018-09-27] MEDS: NICOTINE 21 MG/PAT TD SCH (10:02)
[2018-09-27] MEDS: MORPHINE 4 MG/ML SYR IV PRN ×3 (10:03→23:06)
[2018-09-27] MEDS: PANTOPRAZOLE 40 MG INJ IVP SCH (10:03)
[2018-09-27] MEDS: FLUTICASONE 50MCG NASAL SPRAY NAS SCH ×2 (11:54→20:07)
--- NOTE | 2018-09-27 12:44 | P.PN ---
Subjective Date of Service: 09/27/18 Primary Care Provider: None, [facility] Chief Complaint: pancreatitis Subjective: Doing well (Patient improved. Abdominal pain no longer present. No significant nausea or vomiting.) Physical Examination - Vital Signs Temperature: 97.2 F Blood Pressure: 105/63 Pulse: 68 Respirations: 18 Pulse Ox (%): 95 - Physical Exam General: Alert, In no apparent distress, Oriented x3, Cooperative HEENT: Atraumatic Neck: Supple Respiratory: Clear to auscultation bilaterally, Normal air movement Cardiovascular: Normal pulses, Regular rate/rhythm Gastrointestinal: Normal bowel sounds, Soft and benign, Non-distended, No tenderness, No masses, No rebound, No guarding Musculoskeletal: No erythema, No tenderness, No warmth Integumentary: No tenderness/swelling, No erythema, No warmth, No cyanosis Neurological: Normal speech, Normal strength at 5/5 x4 extr, Normal tone, Normal affect - Studies Laboratory Data (last 24 hrs) 09/26/18 17:46: Creatinine Cancelled 09/26/18 17:45: Amylase 27 09/26/18 17:45: WBC 10.9, Hgb 14.2, Hct 40.3, Plt Count 260 09/26/18 17:45: Sodium 139, Potassium 3.9, BUN 10, Creatinine 0.65, Glucose 107 H, Total Bilirubin 0.3, AST 18, ALT 20, Alkaline Phosphatase 84, Lipase 244 Medications List Reviewed: Yes Assessment & Plan Discharge Plan: Home Plan to discharge in: 24 Hours Physician Review Additional Text: Impression: Acute on chronic pancreatitis GERD Suspect COPD Tobacco abuse Plan: Acute on chronic pancreatitis: Will adjust IV fluids. Abdominal pain no longer present. No significant nausea vomiting noted. Will advance diet to clear liquid. If improved will advance to full liquid for dinner and possibly soft tomorrow. If significantly improved over the next 24 hr then will consider discharge tomorrow. Will monitor lab closely. Patient seen by GI at [facility]. Patient has follow up with GI at [facility] October 27. Education on pancreatic diet address in detail. Patient is not been compliant with this. She reports eating fast food prior to abdominal pain. GERD: Will continue with Protonix. Dietary changes addressed in detail. Suspect COPD: Will start Brovana and albuterol. Patient will likely require medication at discharge. Tobacco abuse: Tobacco cessation addressed in detail. Time Spent Managing Pts Care (In Minutes): 55
[2018-09-27] MEDS: NACHLORIDE 0.45% 1,000 ML IV SCH ×2 (13:01→23:06)
[2018-09-27] MEDS: ARFORMOTEROL TARTRATE 15 MCG/2 ML VIAL.NEB NEB SCH (19:50)
[2018-09-28 06:08] LABS: Absolute Lymphocytes (CBC) 2.3 K/uL (0.7-4.9); Absolute Monocytes 0.3 K/uL (0.1-1.3); Absolute Neutrophil 3.3 K/uL (1.8-8.0); Basophils % 0.3 % (0-1.3); Eosinophils % 4.7 % (0-4.4); Hematocrit 35.9 % (36.0-45.0); Lymphocytes % 37.3 % (15.3-44.8); MPV 8.6 fL (7.6-11.3); Monocytes % 5.2 % (3.3-12.3); RBC Red Blood Cell Count 3.74 M/uL (3.86-4.86)
[2018-09-28 06:23] LABS: ALT/SGPT 17 U/L (12-78); AST/SGOT 15 U/L (15-37); Albumin 2.6 g/dL (3.4-5.0); Alkaline Phosphatase 64 U/L (45-117); BUN Blood Urea Nitrogen 5 mg/dL (7-18); Bicarbonate 29 mmol/L (21-32); Bilirubin Total 0.3 mg/dL (0.2-1.0); Glucose Level 94 mg/dL (74-106); Lipase 105 U/L (73-393); Magnesium 1.9 mg/dL (1.8-2.4); Protein, Total 6.1 g/dL (6.4-8.2); Sodium Level 143 mmol/L (136-145)
[2018-09-28] MEDS: ARFORMOTEROL TARTRATE 15 MCG/2 ML VIAL.NEB NEB SCH (07:30)
[2018-09-28] MEDS: NICOTINE 21 MG/PAT TD SCH (08:54)
[2018-09-28] MEDS: PANTOPRAZOLE 40 MG INJ IVP SCH (08:56)
[2018-09-28] MEDS: FLUTICASONE 50MCG NASAL SPRAY NAS SCH (08:56)
[2018-09-28] MEDS: NACHLORIDE 0.45% 1,000 ML IV SCH (08:58)
[2018-09-28 09:38] VITALS: O2SAT 97
--- NOTE | 2018-09-28 09:47 | P.DS ---
Admission Date: 09/26/18 Discharge Date: 09/28/18 Primary Care Provider: None, [facility] Disposition: ROUTINE DISCHARGE Discharge Condition: GOOD Reason for Admission: pancreatitis Consultations: None Procedures: CT scan: COMPARISON: Abdomen Pelvis W Contrast dated 11/28/2017; Abdomen Pelvis W Contrast dated 10/24/2016; CT ABD PELVIS W CONTRAST dated 11/10/2015 TECHNIQUE: Biphasic CT imaging of the abdomen and pelvis was performed with 100 ml non-ionic IV contrast. All CT scans are performed using dose optimization technique as appropriate and may include automated exposure control or mA/KV adjustment according to patient size. FINDINGS: Linear subsegmental atelectasis is present in both posterior lung bases. A small hiatal hernia is present. The liver, spleen, adrenal glands and kidneys are within normal limits. Mild edematous appearance is seen to the pancreatic head and uncinate process with small surrounding lymph nodes. Cholecystectomy clips are seen. No bowel obstruction, free air, free fluid or abscess. Aortic atherosclerosis. The appendix is normal. Small fat containing umbilical hernia. No evidence of significant lymphadenopathy. No suspicious bony findings. IMPRESSION: Mild edematous appearance in the region of the pancreatic head and uncinate process is seen with several surrounding lymph nodes. This likely represents acute pancreatitis, correlation with amylase and lipase levels is suggested. Medical Problem List: Acute on chronic pancreatitis GERD with hiatal hernia Suspect COPD Tobacco abuse Brief History of Present Illness: 53-year-old female presented to emergency room with epigastric abdominal pain. Patient with history of chronic pancreatitis. Pancreatic enzymes unremarkable but CT scan revealed mild edema to the pancreas. Patient was admitted for further evaluation and treatment. Hospital Course: Patient presented with abdominal pain secondary to acute on chronic pancreatitis. Patient was admitted for treatment. Pancreatic enzymes unremarkable during her stay. CT scan revealed pancreatitis. Her diet was advanced slowly. Patient tolerated her diet well. Patient reported eating fast food prior to admission. This likely lead to acute pancreatitis. Patient was educated on a low fat diet. At discharge she will continue with a low-fat diet. Patient is in process to see GI at [facility] on October 27. Recommendation is for the patient to follow up with GI to further monitor and address. She will continue with dietary changes. Patient to refrain from alcohol use. Patient plans to establish care at [facility]. Recommendation is to recheck lab-CBC, lipase and CMP in 2-4 weeks to monitor progress. Education on pancreatitis will be provided. Patient with GERD and noted hiatal hernia. Patient reports history of duodenal ulcer. At discharge she will continue with her previous medication of Protonix 40 mg 1 pill twice daily. Lifestyle modification changes in dietary changes addressed in detail. Patient with history of tobacco abuse. Tobacco cessation addressed in detail. Patient likely with underlying COPD. At discharge she will be prescribed Symbicort 2 puffs twice daily and Pro air 2 puffs 3 times a day as needed for shortness of breath. Patient may follow up with pulmonology as an outpatient to further monitor and address. Patient may benefit with nicotine patch or other options to help quit smoking. This can be further addressed by her PCP. Vital Signs/Physical Exam: Temp Pulse Resp BP Pulse Ox 97.8 F 75 20 142/86 H 97 09/28/18 08:00 09/28/18 08:00 09/28/18 08:00 09/28/18 08:00 09/28/18 08:00 General: Alert, In no apparent distress, Oriented x3, Cooperative HEENT: Atraumatic, Normocephalic, Mucous membr. moist/pink Neck: Supple Respiratory: Clear to auscultation bilaterally, Normal air movement Cardiovascular: Normal pulses, Regular rate/rhythm Gastrointestinal: Normal bowel sounds, Soft and benign, Non-distended, No tenderness, No masses, No rebound, No guarding Musculoskeletal: No contractures, No erythema, No tenderness, No warmth Integumentary: No tenderness/swelling, No erythema, No warmth, No cyanosis Neurological: Normal speech, Normal strength at 5/5 x4 extr, Normal tone, Normal affect Lymphatics: No axilla or inguinal lymphadenopathy Laboratory Data at Discharge: WBC 6.3 K/uL (4.3-10.9) 09/28/18 05:19 Hgb 12.5 g/dL (12.0-15.0) 09/28/18 05:19 Hct 35.9 % (36.0-45.0) L 09/28/18 05:19 Plt Count 196 K/uL (152-406) 09/28/18 05:19 Sodium 143 mmol/L (136-145) 09/28/18 05:19 Potassium 4.0 mmol/L (3.5-5.1) 09/28/18 05:19 BUN 5 mg/dL (7-18) L 09/28/18 05:19 Creatinine 0.65 mg/dL (0.55-1.3) 09/28/18 05:19 Glucose 94 mg/dL (74-106) 09/28/18 05:19 Magnesium 1.9 mg/dL (1.8-2.4) 09/28/18 05:19 Total Bilirubin 0.3 mg/dL (0.2-1.0) 09/28/18 05:19 AST 15 U/L (15-37) 09/28/18 05:19 ALT 17 U/L (12-78) 09/28/18 05:19 Alkaline Phosphatase 64 U/L (45-117) 09/28/18 05:19 Amylase 20 U/L (25-115) L 09/27/18 05:21 Lipase 105 U/L (73-393) 09/28/18 05:19 Home Medications: Ergocalciferol (Vitamin D2) [Vitamin D2] 50,000 unit PO SEECOM 09/27/18 Albuterol Sulfate [Proair Hfa] 8.5 gm IH TID PRN #1 hfa.aer.ad 09/28/18 Budesonide/Formoterol Fumarate [Symbicort 160-4.5 Mcg Inhaler] 2 puff IH BID #1 hfa.aer.ad 09/28/18 Pantoprazole [Protonix Tab*] 40 mg PO BID #60 tab 09/28/18 New Medications: Albuterol Sulfate [Proair Hfa] 8.5 gm IH TID PRN #1 hfa.aer.ad PRN Reason: Shortness Of Breath Budesonide/Formoterol Fumarate [Symbicort 160-4.5 Mcg Inhaler] 2 puff IH BID #1 hfa.aer.ad Pantoprazole [Protonix Tab*] 40 mg PO BID #60 tab Patient Discharge Instructions: 1. Patient will need to follow up and establish care with a PCP at [facility] to follow up this hospitalization. 2. Patient presented with abdominal pain secondary to acute on chronic pancreatitis. Patient was admitted for treatment. Pancreatic enzymes unremarkable during her stay. CT scan revealed pancreatitis. Her diet was advanced slowly. Patient tolerated her diet well. Patient reported eating fast food prior to admission. This likely lead to acute pancreatitis. Patient was educated on a low fat diet. At discharge she will continue with a low-fat diet. Patient is in process to see GI at [facility] on October 27. Recommendation is for the patient to follow up with GI to further monitor and address. She will continue with dietary changes. Patient to refrain from alcohol use. Patient plans to establish care at [facility]. Recommendation is to recheck lab-CBC, lipase and CMP in 2-4 weeks to monitor progress. Education on pancreatitis will be provided. 3. Patient with GERD and noted hiatal hernia. Patient reports history of duodenal ulcer. At discharge she will continue with her previous medication of Protonix 40 mg 1 pill twice daily. Lifestyle modification changes in dietary changes addressed in detail. 4. Patient with history of tobacco abuse. Tobacco cessation addressed in detail. Patient likely with underlying COPD. At discharge she will be prescribed Symbicort 2 puffs twice daily and Pro air 2 puffs 3 times a day as needed for shortness of breath. Patient may follow up with pulmonology as an outpatient to further monitor and address. Patient may benefit with nicotine patch or other options to help quit smoking. This can be further addressed by her PCP. Diet: Low-fat diet Activity: Ad paras Time spent managing pt's care (in minutes): 55
[2018-09-28 12:50] VITALS: BP 135/84; TEMP 98.3
== END 2018-09-28 12:00 | disposition home or self-care (01) | DRG 440 ==
LOC: ER 17:31 → ERHOLD 21:42 → 4TH 22:33
PROVIDERS: ADMIT Internal Medicine; ATTEND Internal Medicine
DX: K85.90 Acute pancreatitis without necrosis or infection, unspecified (principal); K21.9 Gastro-esophageal reflux disease without esophagitis; K44.9 Diaphragmatic hernia without obstruction or gangrene; F17.210 Nicotine dependence, cigarettes, uncomplicated; J44.9 Chronic obstructive pulmonary disease, unspecified; M06.9 Rheumatoid arthritis, unspecified; Z96.653 Presence of artificial knee joint, bilateral; Z88.0 Allergy status to penicillin
CPT/HCPCS: 36415; 74177; 80048; 80053; 80076; 81003; 82150; 83690; 83735; 85025; 96361; 96374; 96375; 99285; C9113; J2270; J2550; J7030; J7605; Q9967

== ENCOUNTER 2019-04-12 01:42 | Emergency (ER) | payer OTHER ==
--- OUTSIDE RECORDS SUMMARY | 2019-04-12 01:45 | XMS REPORT ---
:1965 Author Organization [facility] Address [address] [place] [address] [address]. [address] [place] [address] Care Team Providers Name Role Phone Unavailable Unavailable Unavailable Problems This patient has no known problems. Allergies, Adverse Reactions, Alerts This patient has no known allergies or adverse reactions. Medications This patient has no known medications.
--- OUTSIDE RECORDS SUMMARY | 2019-04-12 01:45 | XMS REPORT | Encounter Summary ---
:1965 Author Care Team Providers Name Role Phone Jonathna Perez MD Primary Care Provider [phone] Reason for Visit Follow Up Visit Instructions 1. Recurrent pancreatitis pancreatitis: care instructions gastroenterology referral amylase + lipase, serum CMP, serum or plasma vitamin D, 25-hydroxy, total, serum 2. Cyst of ovary US, pelvis - hx of ovarian cyst Discussion Note: None recorded. Plan of Care Reminders Provider Appointments Return to on or Jonathan Perez MD Office around 06/14/2019 Lab Amylase + 03/14/2019 [facility] Lipase, Serum [facility] (Labs) (Xray) CMP, Serum or 03/14/2019 [facility] Plasma [facility] (Labs) (Xray) Vitamin D, 03/14/2019 [facility] 25-Hydroxy, Total, Serum [facility] (Labs) (Xray) Referral 04/11/2019 [facility] Gastroenterology Referral Gastroenterology Procedures None recorded. Surgeries None recorded. Imaging US, Pelvis 03/21/2019 [facility] (Labs) (Xray) Medications Name Start Date ondansetron 4 mg disintegrating tablet pantoprazole 40 mg tablet,delayed release Take 2 tablets every day by oral route. Medications Administered None recorded. Vitals Height Weight BMI Blood Pressure 63 in 142 lbs 25.2 kg/m2 126/82 mm[Hg] Lab Results None recorded. Allergies Code Code System Name Reaction Severity Status Onset 960791 RxNorm Demerol Active 380417 RxNorm Dilaudid Active Problems Name Status Onset Date Source Recurrent Pancreatitis Active 01/03/2019 Cyst of Ovary Active 01/03/2019 Pain in Right Knee Active 01/03/2019 Procedures Date Name Performed by Remove Tonsils and Adenoids Information not available Operative Procedure on Knee Information not available Procedure on Gallbladder Information not available Vaccine List None recorded. Social History None recorded. Past Encounters 03/14/2019 Recurrent Pancreatitis; Cyst of Ovary Jonathan Perez MD: [address] [place] [address], [address], [place] [address], Ph. History of Present Illness Note: 15 min consultation <div>CC chronic panceatitis</div>< div>hpi has "temporary stents" dr [facility] states she needs "permanent stent" needs GI dr.</div><div>CC ovarian cyst</div><div> npi has hx of this needs US</div>Review of Systems: ROS as noted in the HPI Review of Systems None recorded. Physical Exam Notes: consult
--- OUTSIDE RECORDS SUMMARY | 2019-04-12 01:45 | XMS REPORT | Encounter Summary ---
:1965 Author Care Team Providers Name Role Phone Jonathan Perez MD Primary Care Provider [phone] Reason for Visit new patient Instructions 1. Recurrent pancreatitis pancreatitis: care instructions 2. Pain in right knee XR, knee, 1 or 2 view 3. Cyst of ovary US, pelvis Discussion Note: None recorded. Plan of Care Reminders Provider Appointments Return to on or around Jonathan Perez MD Office 01/24/2019 Lab None recorded. Referral None recorded. Procedures None recorded. Surgeries None recorded. Imaging XR, Knee, 01/03/2019 [place] 1 or 2 View [facility] (Imaging) US, 01/11/2019 [place] Pelvis [facility] (Imaging) Medications Name Start Date [place] Protonix 40 mg tablet,delayed release Take 2 tablets every day by oral route. Medications Administered None recorded. Vitals Height Weight BMI Blood Pressure 63 in 144 lbs 16 oz 25.7 kg/m2 133/80 mm[Hg] Lab Results None recorded. Allergies Code Code System Name Reaction Severity Status Onset 640856 RxNorm Demerol Active 189476 RxNorm Dilaudid Active Problems Name Status Onset Date Source Recurrent Pancreatitis Active 01/03/2019 Cyst of Ovary Active 01/03/2019 Pain in Right Knee Active 01/03/2019 Procedures Date Name Performed by Remove Tonsils and Adenoids Information not available Operative Procedure on Knee Information not available Procedure on Gallbladder Information not available 01/03/2019 XR, Knee, 1 or 2 View [facility] (Imaging) [address] [place] [address] (Work Place) Vaccine List None recorded. Social History None recorded. Past Encounters 01/03/2019 Recurrent Pancreatitis; Pain in Right Knee; Cyst of Ovary Jonathan Perez MD: [address] [place] [address], [address], [place] [address], Ph. History of Present Illness Note: reviewed her recent hosp from [facility]<div>CC acute panceatitis</div><div>hpi 2nd hosp for this "past" drinker</div& gt;<div>CC duodenal ulcer</div><div>hpi hx is that she has this in response to hole in pancreas causing the problem</div><div> cc cyst on rt elbow</div><div>cc rt knee pain</div><div> cc cyst on ovary</div><div>reviewed PMHx, PSHx in hosp records</ div><div>ros</div><div>gen doing much better</div>&lt ;div>cv neg</div><div>resp neg</div><div>gi above< /div>Review of Systems: ROS as noted in the HPI Review of Systems None recorded. Physical Exam Dr. Perez Brief Adult Exam - M/F Reported By: Patient Constitutional: General Appearance: healthy-appearing, well-nourished, well-developed. Level of Distress: NAD. Ambulation: ambulating normally ENMT: Ears: no lesions on external ear, EACs clear, TMs clear, TM mobility normal. Nose: nares patent, nasal passages clear. Oropharynx: moist mucous membranes, no erythema, no exudates, tonsils not enlarged Neck: Neck: supple, trachea midline, no masses, FROM. Lymph Nodes: no cervical LAD, no supraclavicular LAD Lungs: Auscultation: breath sounds normal, good air movement, CTA except as noted, no wheezing, no rales/crackles, no rhonchi Cardiovascular: Heart Auscultation: RRR, no rubs, no gallops Abdomen: Bowel Sounds: normal. Inspection and Palpation: epigastric tenderness, LUQ tenderness, RUQ tenderness, guarding
--- OUTSIDE RECORDS SUMMARY | 2019-04-12 01:45 | XMS REPORT | Clinical Summary ---
:1965 Author Organization [facility] Address [address] [place] [address] Care Team Providers Name Role Phone Asked, No Pcp Primary Care Provider Unavailable Allergies Active Allergy Reactions Severity Noted Date Comments Meperidine 08/16/2018 Medications Medication Sig Dispensed Refills Start Date End Date Status dicyclomine (BENTYL) Take 1 120 capsule 11 02/07/2019 Active 10 MG capsule (10 0 capsuleIndications: mg total) by Abdominal pain, mouth 4 unspecified (four) times abdominal location a day before meals and nightly. Lactobacillus Take 1 tablet 90 tablet 0 08/21/2018 acidoph-L.bulgar by mouth 3 8 (FLORANEX) 1 million (three) times cell tablet a day for 30 days. pantoprazole Take 1 tablet 60 tablet 0 08/21/2018 (PROTONIX) 40 MG EC (40 mg total) 8 tablet by mouth 2 (two) times a day for 30 days. levETIRAcetam Take 1 tablet 60 tablet 0 08/21/2018 (KEPPRA) 500 MG (500 mg 8 tablet total) by mouth 2 (two) times a day for 30 days. PROAIR HFA 90 INHALE 1 PUFF 0 10/27/2018 Discontinued mcg/actuation PO TID PRN 9 inhaler SOB SYMBICORT 160-4.5 INHALE 2 0 10/27/2018 Discontinued mcg/actuation PUFFS PO BID 9 inhaler pantoprazole TK 1 T PO BID 0 10/27/2018 Discontinued (PROTONIX) 40 MG EC 9 tablet ondansetron ODT Take 1 tablet 30 tablet 0 12/22/2018 (ZOFRAN-ODT) 4 MG (4 mg total) 9 disintegrating by mouth tablet every 8 (eight) hours as needed for nausea or vomiting for up to 30 days. amLODIPine (NORVASC) Take 1 tablet 30 tablet 0 12/23/2018 5 mg tablet (5 mg total) 9 by mouth daily for 30 days. pantoprazole Take 1 tablet 60 tablet 1 12/22/2018 Discontinued (PROTONIX) 40 MG EC (40 mg total) 9 tablet by mouth 2 (two) times a day for 60 days. HYDROcodone-acetamin Take 1 tablet 20 tablet 0 12/23/2018 ophen (NORCO) 5-325 by mouth 9 mg per tablet every 8 (eight) hours as needed for moderate pain for up to 20 doses. Max Daily Amount: 3 tablets traMADol (ULTRAM) 50 Take 1 tablet 30 tablet 0 01/04/2019 Discontinued mg (50 mg total) 9 tabletIndications: by mouth Acute recurrent every 12 pancreatitis, (twelve) Epigastric abdominal hours as pain needed for moderate pain for up to 30 days. ondansetron ODT Take 1 tablet 40 tablet 0 02/12/2019 (ZOFRAN-ODT) 4 MG (4 mg total) 9 disintegrating by mouth tablet every 8 (eight) hours as needed for nausea or vomiting for up to 5 days. acetaminophen-codein Take 1 tablet 12 tablet 0 02/12/2019 e (TYLENOL WITH by mouth 9 CODEINE #3) 300-30 every 4 mg per tablet (four) hours as needed for moderate pain for up to 3 days. Active Problems Problem Noted Date Biliary colic 02/11/2019 Choledocholithiasis 01/10/2019 Acute pancreatitis 01/09/2019 Rheumatoid arthritis 01/09/2019 Epigastric abdominal pain 01/04/2019 Weakness 01/04/2019 Biliary sludge 01/04/2019 Acute recurrent pancreatitis 12/16/2018 Duodenal rupture 08/16/2018 Encounters Date Type Specialty Care Team Description 03/20/20 Telephone Gastroenterology Jean Claude Georges 03/19/20 Telephone Gastroenterology Anjo-ann Binca B 19 03/11/20 Telephone Gastroenterology Sterling, 19 IRIS Garza 02/19/20 Telephone Gastroenterology [place], 19 IRIS Garza 02/19/20 Telephone Gastroenterology [place], 19 IRIS Garza 02/12/20 Anesthesia Gastroenterology other, 19 Event Andres Dawkins MD 02/12/20 Surgery Gastroenterology Ede Alex MD ERCP WITH FLUORO WITH STENT 19 REMOVAL 02/12/20 [facility] Ede Alex MD Biliary colic (Primary Dx) 19 - Encounter Medicine Zac, 02/13/20 MD Glen 19 02/12/20 Telephone Gastroenterology Anjo-ann Binca B 19 02/08/20 Telephone Gastroenterology Asher, Abdominal pain, unspecified 19 IRIS Garza abdominal location (Primary Dx) 01/17/20 Telephone Gastroenterology Asher, 19 IRIS Garza 01/17/20 Telephone Gastroenterology Margret, 19 Ina, RN 01/16/20 Telephone Gastroenterology Margret, 19 MYAH Buckley 01/16/20 Telephone Gastroenterology Ede Alex MD 19 01/11/20 Surgery Gastroenterology Henok Knox, ERCP WITH FLUORO 19 MD 01/11/20 Anesthesia Gastroenterology [facility], 19 Event Andres Dawkins MD 01/09/20 [facility], Idiopathic acute pancreatitis without infection or necrosis (Primary Dx); 19 - Encounter Medicine [place] Epigastric pain; 01/13/20 MD Jorge Luis Non-intractable cyclical vomiting with nausea; 19 Joglekar, Acute pancreatitis, unspecified complication status, unspecified pancreatitis type; MD Francisca Recurrent acute pancreatitis Jude Liu MD 01/09/20 Travel 19 01/05/20 Office Visit Gastroenterology Ede Alex MD Acute recurrent pancreatitis (Primary Dx); 19 Epigastric abdominal pain; Weakness; Biliary sludge 01/03/20 Telephone Gastroenterology Destini Binca B 19 12/26/19 Telephone Gastroenterology Asher, 19 IRIS Garza 12/20/19 Anesthesia Gastroenterology Daquan Alejandra MD 19 Event 12/20/19 Surgery Gastroenterology Ede Alex MD EGD, W/ NJT 19 12/17/19 [facility] Jude Chaney Acute pancreatitis, 19 - Encounter MD Dat unspecified complication 12/24/19 Graciela Alex, status, unspecified 19 MD pancreatitis type (Primary Dx) 12/17/19 Travel 19 08/28/20 Telephone Gastroenterology Jones Morgan MA 08/21/20 Patient Quality Falguni Calvo, 18 Outreach RN 08/20/20 Surgery Gastroenterology ESOPHAGOGASTRODUODENOSCOPY 18 (EGD) with cold bx 08/20/20 Anesthesia Gastroenterology [facility], 18 Event Andres Dawkins MD 08/16/20 [facility] Internal [facility], Duodenal rupture (HCC) ( Primary Dx); 18 - Encounter Medicine Urban Diego MD Pain of upper abdomen 08/21/20 Rell, 18 MD Germaine Batres Bryan, MD 08/16/20 Travel 18 after 04/11/2018 Social History Tobacco Use Types Packs/Day Years Used Date Current Every Day Smoker Cigarettes 0.75 40 Smokeless Tobacco: Never Used Tobacco Cessation: Ready to Quit: No; Counseling Given: Yes Comments: cutting back currently per pt Alcohol Use Drinks/Week oz/Week Comments Yes social Alcohol Habits Answer Date Recorded How often [...] Vital Sign Reading Time Taken Blood Pressure 113/60 02/12/2019 7:22 AM CDT Pulse 70 02/12/2019 7:22 AM CDT Temperature 36.3 C (97.3 F) 02/12/2019 7:22 AM CDT Respiratory Rate 17 02/12/2019 7:22 AM CDT Oxygen Saturation 96% 02/12/2019 7:22 AM CDT Inhaled Oxygen Concentration - - Weight 63.6 kg (140 lb 3.2 oz) 02/11/2019 9:45 AM CDT Height 156.2 cm (5' 1.5") 02/11/2019 9:45 AM CDT Body Mass Index 26.06 02/11/2019 9:45 AM CDT Plan of Treatment Health Maintenance Due Date Last Done Comments BREAST CANCER SCREENING 2013 COLONOSCOPY SCREENING 2013 SHINGLES VACCINES (#1) 2013 INFLUENZA VACCINE 05/02/2019 Implants Implanted Type Area Rewrite Editor Device Shelf Model / Identifier Expiration Serial / Date Lot Knee Implants, Knee Implants, Repairs, Repairs, Reconstruction Reconstruction Stent Advanix Pncreatic 5fr 7cm Str No Leading Jelena - [id number] Surgical Stents N/A: [facility] 10/13/2019 [id number] / Implanted: 01/10/2019 (Quantity not on file) N/A / [id number] Stent Bili Advnx Cntrbnd Magdiel 10fr 5cm - [id number] Surgical Stents N/A: [facility] 10/18/2020 [id number] / Implanted: 01/10/2019 (Quantity not on file) N/A / [id number] Procedures Procedure Name Priority Date/Time Associated Comments Diagnosis ESTIMATED GFR Routine 02/12/2019 4:15 Results for this AM CDT procedure are in the results section. COMPREHENSIVE Routine 02/12/2019 4:15 Results for this METABOLIC PANEL AM CDT procedure are in the results section. HC COMPLETE BLD COUNT Routine 02/12/2019 4:15 Results for this W/AUTO DIFF AM CDT procedure are in the results section. ERCP WITH FLUORO 02/11/2019 11:00 Biliary colic AM CDT Case Notes FLOURO Special Needs FLOURO ESTIMATED GFR Routine 01/12/2019 Results for 4:00 AM CDT this procedure are in the results section. COMPREHENSIVE METABOLIC PANEL Routine 01/12/2019 Results for 4:00 AM CDT this procedure are in the results section. ESTIMATED GFR Routine 01/11/2019 Results for 4:00 AM CDT this procedure are in the results section. LIPASE LEVEL Routine 01/11/2019 Results for 4:00 AM CDT this procedure are in the results section. COMPREHENSIVE METABOLIC PANEL Routine 01/11/2019 Results for 4:00 AM CDT this procedure are in the results section. HC COMPLETE BLD COUNT W/AUTO Routine 01/11/2019 Results for DIFF 4:00 AM CDT this procedure are in the results section. ECG 12-LEAD STAT 01/10/2019 Results for 9:11 AM CDT this procedure are in the results section. ERCP WITH FLUORO 01/10/2019 Acute 8:00 AM CDT pancreatitis, unspecified complication status, unspecified pancreatitis type URINE DRUGS OF ABUSE SCREEN Routine 01/10/2019 Results for 5:00 AM CDT this procedure are in the results section. ESTIMATED GFR Routine 01/10/2019 Results for 4:20 AM CDT this procedure are in the results section. COMPREHENSIVE METABOLIC PANEL Routine 01/10/2019 Results for 4:20 AM CDT this procedure are in the results section. HC COMPLETE BLD COUNT W/AUTO Routine 01/10/2019 Results for DIFF 4:20 AM CDT this procedure are in the results section. ALCOHOL LEVEL, BLOOD Routine 01/09/2019 Results for 12:00 PM CDT this procedure are in the results section. LACTIC ACID LEVEL Routine 01/09/2019 Results for 4:00 AM CDT this procedure are in the results section. ESTIMATED GFR Routine 01/09/2019 Results for 4:00 AM CDT this procedure are in the results section. COMPREHENSIVE METABOLIC PANEL Routine 01/09/2019 Results for 4:00 AM CDT this procedure are in the results section. HC COMPLETE BLD COUNT W/AUTO Routine 01/09/2019 Results for DIFF 4:00 AM CDT this procedure are in the results section. CT ABDOMEN PELVIS W CONTRAST STAT 01/09/2019 Results for 12:32 AM CDT this procedure are in the results section. URINALYSIS STAT 01/08/2019 Results for 10:38 PM CDT this procedure are in the results section. TROPONIN, I-STAT STAT 01/08/2019 Results for 10:38 PM CDT this procedure are in the results section. HC COMPLETE BLD COUNT W/AUTO STAT 01/08/2019 Results for DIFF 10:38 PM CDT this procedure are in the results section. LIPASE LEVEL STAT 01/08/2019 Results for 10:38 PM CDT this procedure are in the results section. ESTIMATED GFR STAT 01/08/2019 Results for 9:15 PM CDT this procedure are in the results section. COMPREHENSIVE METABOLIC PANEL STAT 01/08/2019 Results for 9:15 PM CDT this procedure are in the results section. HC COMPLETE BLD COUNT W/AUTO Routine 12/23/2018 Results for DIFF 3:59 AM CDT this procedure are in the results section. POC GLUCOSE Routine 12/22/2018 Results for 8:54 PM CDT this procedure are in the results section. POC GLUCOSE Routine 12/22/2018 Results for 5:06 PM CDT this procedure are in the results section. POC GLUCOSE Routine 12/22/2018 Results for 12:37 PM CDT this procedure are in the results section. POC GLUCOSE Routine 12/22/2018 Results for 8:28 AM CDT this procedure are in the results section. POTASSIUM LEVEL Timed 12/22/2018 Results for 5:06 AM CDT this procedure are in the results section. HC COMPLETE BLD COUNT W/AUTO Timed 12/22/2018 Results for DIFF 5:06 AM CDT this procedure are in the results section. POC GLUCOSE Routine 12/22/2018 Results for 1:15 AM CDT this procedure are in the results section. POC GLUCOSE Routine 12/21/2018 Results for 9:25 PM CDT this procedure are in the results section. POC GLUCOSE Routine 12/21/2018 Results for 5:25 PM CDT this procedure are in the results section. POC GLUCOSE Routine 12/21/2018 Results for 12:05 PM CDT this procedure are in the results section. POC GLUCOSE Routine 12/21/2018 Results for 7:41 AM CDT this procedure are in the results section. ESTIMATED GFR Timed 12/21/2018 Results for 6:00 AM CDT this procedure are in the results section. BASIC METABOLIC PANEL Timed 12/21/2018 Results for 6:00 AM CDT this procedure are in the results section. HC COMPLETE BLD COUNT W/AUTO Timed 12/21/2018 Results for DIFF 5:35 AM CDT this procedure are in the results section. IGG SUBCLASSES STAT 12/20/2018 Results for 8:40 PM CDT this procedure are in the results section. XR ABDOMEN 1 VW PORTABLE STAT 12/20/2018 Results for 2:01 PM CDT this procedure are in the results section. ESTIMATED GFR Timed 12/20/2018 Results for 7:22 AM CDT this procedure are in the results section. BASIC METABOLIC PANEL Timed 12/20/2018 Results for 7:22 AM CDT this procedure are in the results section. SURGICAL PATHOLOGY REQUEST Routine 12/19/2018 Results for 12:09 PM CDT this procedure are in the results section. XR ABDOMEN 1 VW PORTABLE STAT 12/19/2018 Results for 11:16 AM CDT this procedure are in the results section. US UPPER GI TRACT, ENDOSCOPIC 12/19/2018 Acute 10:00 AM CDT pancreatitis, unspecified complication status, unspecified pancreatitis type EGD, WITH NASOJEJUNAL TUBE 12/19/2018 Acute PLACEMENT USING 10:00 AM CDT pancreatitis, [id number] TECHNIQUE unspecified complication status, unspecified pancreatitis type ESTIMATED GFR Timed 12/19/2018 Results for 5:29 AM CDT this procedure are in the results section. BASIC METABOLIC PANEL Timed 12/19/2018 Results for 5:29 AM CDT this procedure are in the results section. HC COMPLETE BLD COUNT W/AUTO Timed 12/19/2018 Results for DIFF 4:45 AM CDT this procedure are in the results section. MRI ABDOMEN W WO CONTRAST Routine 12/18/2018 Results for 2:02 PM CDT this procedure are in the results section. LIPASE LEVEL Routine 12/18/2018 Results for 10:44 AM CDT this procedure are in the results section. ESTIMATED GFR Timed 12/18/2018 Results for 4:26 AM CDT this procedure are in the results section. BASIC METABOLIC PANEL Timed 12/18/2018 Results for 4:26 AM CDT this procedure are in the results section. HC COMPLETE BLD COUNT W/AUTO Timed 12/18/2018 Results for DIFF 4:26 AM CDT this procedure are in the results section. ESTIMATED GFR Timed 12/17/2018 Results for 5:15 AM CDT this procedure are in the results section. BASIC METABOLIC PANEL Timed 12/17/2018 Results for 5:15 AM CDT this procedure are in the results section. HC COMPLETE BLD COUNT W/AUTO Timed 12/17/2018 Results for DIFF 5:15 AM CDT this procedure are in the results section. TROPONIN Timed 12/17/2018 Results for 4:15 AM CDT this procedure are in the results section. POC GLUCOSE Routine 12/17/2018 Results for 1:02 AM CDT this procedure are in the results section. XR CHEST 1 VW PORTABLE STAT 12/16/2018 Results for 6:12 PM CDT this procedure are in the results section. ECG 12-LEAD STAT 12/16/2018 Results for 4:24 PM CDT this procedure are in the results section. TROPONIN STAT 12/16/2018 Results for 4:10 PM CDT this procedure are in the results section. PHOSPHORUS LEVEL Routine 12/16/2018 Results for 10:11 AM CDT this procedure are in the results section. LIPID PANEL Routine 12/16/2018 Results for 10:11 AM CDT this procedure are in the results section. CT ABDOMEN PELVIS W CONTRAST STAT 12/16/2018 Results for 5:35 AM CDT this procedure are in the results section. ECG 12-LEAD STAT 12/16/2018 Results for 4:54 AM CDT this procedure are in the results section. ESTIMATED GFR STAT 12/16/2018 Results for 4:34 AM CDT this procedure are in the results section. TROPONIN, I-STAT STAT 12/16/2018 Results for 4:34 AM CDT this procedure are in the results section. AMYLASE LEVEL STAT 12/16/2018 Results for 4:34 AM CDT this procedure are in the results section. COMPREHENSIVE METABOLIC PANEL STAT 12/16/2018 Results for 4:34 AM CDT this procedure are in the results section. URINALYSIS STAT 12/16/2018 Results for 4:34 AM CDT this procedure are in the results section. HC COMPLETE BLD COUNT W/AUTO STAT 12/16/2018 Results for DIFF 4:34 AM CDT this procedure are in the results section. ECG ED PRELIMINARY Routine 12/16/2018 Results for INTERPRETATION 4:29 AM CDT this procedure are in the results section. MRI BRAIN W WO CONTRAST Routine 08/21/2018 Results for 2:21 PM POWER TRANSFORMER REPAIR SUPERVISOR this procedure are in the results section. EEG AWAKE/DROWSY LESS THAN 41 Routine 08/21/2018 Results for MIN 9:08 AM POWER TRANSFORMER REPAIR SUPERVISOR this procedure are in the results section. SURGICAL PATHOLOGY REQUEST Routine 08/20/2018 Results for 10:01 AM POWER TRANSFORMER REPAIR SUPERVISOR this procedure are in the results section. ESOPHAGOGASTRODUODENOSCOPY 08/20/2018 Duodenal rupture (EGD) 8:00 AM POWER TRANSFORMER REPAIR SUPERVISOR (HCC) HELICOBACTER PYLORI ABS Routine 08/19/2018 Results for 10:52 AM POWER TRANSFORMER REPAIR SUPERVISOR this procedure are in the results section. HC COMPLETE BLD COUNT W/AUTO Routine 08/19/2018 Results for DIFF 5:20 AM POWER TRANSFORMER REPAIR SUPERVISOR this procedure are in the results section. ESTIMATED GFR Routine 08/19/2018 Results for 4:00 AM POWER TRANSFORMER REPAIR SUPERVISOR this procedure are in the results section. BASIC METABOLIC PANEL Routine 08/19/2018 Results for 4:00 AM POWER TRANSFORMER REPAIR SUPERVISOR this procedure are in the results section. CLOSTRIDIUM DIFFICILE TOXIN Routine 08/18/2018 Results for 1:45 PM POWER TRANSFORMER REPAIR SUPERVISOR this procedure are in the results section. LIPID PANEL Routine 08/18/2018 Results for 4:00 AM POWER TRANSFORMER REPAIR SUPERVISOR this procedure are in the results section. FL UGI W KUB Routine 08/17/2018 Results for 12:12 PM POWER TRANSFORMER REPAIR SUPERVISOR this procedure are in the results section. PARTIAL THROMBOPLASTIN TIME Routine 08/17/2018 Results for (PTT) 5:15 AM POWER TRANSFORMER REPAIR SUPERVISOR this procedure are in the results section. PROTHROMBIN TIME WITH INR Routine 08/17/2018 Results for 5:15 AM POWER TRANSFORMER REPAIR SUPERVISOR this procedure are in the results section. HC COMPLETE BLD COUNT W/AUTO Routine 08/17/2018 Results for DIFF 5:15 AM POWER TRANSFORMER REPAIR SUPERVISOR this procedure are in the results section. ESTIMATED GFR Routine 08/17/2018 Results for 4:00 AM POWER TRANSFORMER REPAIR SUPERVISOR this procedure are in the results section. MAGNESIUM LEVEL Routine 08/17/2018 Results for 4:00 AM POWER TRANSFORMER REPAIR SUPERVISOR this procedure are in the results section. LACTIC ACID LEVEL Routine 08/17/2018 Results for 4:00 AM POWER TRANSFORMER REPAIR SUPERVISOR this procedure are in the results section. COMPREHENSIVE METABOLIC PANEL Routine 08/17/2018 Results for 4:00 AM POWER TRANSFORMER REPAIR SUPERVISOR this procedure are in the results section. POC GLUCOSE Routine 08/16/2018 Results for 6:25 PM POWER TRANSFORMER REPAIR SUPERVISOR this procedure are in the results section. CT ABDOMEN PELVIS W CONTRAST STAT 08/16/2018 Results for 2:49 PM POWER TRANSFORMER REPAIR SUPERVISOR this procedure are in the results section. URINALYSIS STAT 08/16/2018 Results for 2:14 PM POWER TRANSFORMER REPAIR SUPERVISOR this procedure are in the results section. LIPASE LEVEL STAT 08/16/2018 Results for 1:44 PM POWER TRANSFORMER REPAIR SUPERVISOR this procedure are in the results section. ESTIMATED GFR STAT 08/16/2018 Results for 1:44 PM POWER TRANSFORMER REPAIR SUPERVISOR this procedure are in the results section. HEPATIC FUNCTION PANEL STAT 08/16/2018 Results for 1:44 PM POWER TRANSFORMER REPAIR SUPERVISOR this procedure are in the results section. AMYLASE LEVEL STAT 08/16/2018 Results for 1:44 PM POWER TRANSFORMER REPAIR SUPERVISOR this procedure are in the results section. COMPREHENSIVE METABOLIC PANEL STAT 08/16/2018 Results for 1:44 PM POWER TRANSFORMER REPAIR SUPERVISOR this procedure are in the results section. HC COMPLETE BLD COUNT W/AUTO STAT 08/16/2018 Results for DIFF 1:44 PM POWER TRANSFORMER REPAIR SUPERVISOR this procedure are in the results section. ECG 12-LEAD Routine 08/16/2018 Results for 1:32 PM POWER TRANSFORMER REPAIR SUPERVISOR this procedure are in the results section. after 04/11/2018 Results Estimated GFR (02/12/2019 4:15 AM CDT)Only the most recent of15 resultswithin the time period is included. Estimated GFR >=90 mL/min/1.73 [facility] Comment: m2 HOSPITAL CatergoryUnitsInterpretation G1 >=90 Normal or high G2 60-89Mildly decreased R1g70-35Mhxmps to moderately decreased X1a72-97Lfiiibrznt to severely decreased G4 15-29Severely decreased G5 <15Kidney failure The eGFR was calculated using the Chronic Kidney Disease Epidemiology Collaboration (CKD-EPI) equation. Interpretation is based on recommendations of the National Kidney Foundation-Kidney Disease Outcomes Quality Initiative (NKF-KDOQI) published in 2014. Specimen Plasma specimen Performing Organization Address City/State/Zipcode Phone Number [facility] DEPARTMENT OF PATHOLOGY AND [address] [place] [id number] GENOMIC MEDICINE [facility] [address] [place] [address] CBC with platelet and differential (02/12/2019 4:15 AM CDT)Only the most recent of15 resultswithin the time period is included. WBC 6.15 4.50 - 11.00 [facility] k/uL HOSPITAL RBC 3.73 (L) 4.20 - 5.50 [facility] m/uL [facility] HGB 11.5 (L) 12.0 [facility].0 [facility] HCT 35.3 (L) 37.0 - 47.0 % [facility] MCV 94.6 82.0 - 100.0 [facility] MCH 30.8 27.0 - 34.0 pg [facility] MCHC 32.6 31.0 - 37.0 [facility] gdL [facility] RDW - SD 43.3 37.0 - 55.0 fL [facility] MPV 10.3 8.8 - 13.2 fL [facility] Platelet count 196 150 - 400 k/uL [facility] Nucleated RBC 0.00 /100 WBC [facility] Neutrophils 45.3 39.0 - 69.0 % [facility] Lymphocytes 42.0 25.0 - 45.0 % [facility] Monocytes 7.0 0.0 - 10.0 % [facility] Eosinophils 4.7 0.0 - 5.0 % [facility] Basophils 0.7 0.0 - 1.0 % [facility] Immature granulocytes 0.3Comment: 0.0 - 1.0 % [facility] "Immature HOSPITAL granulocytes" (promyelocytes , myelocytes, metamyelocytes ) Specimen Blood Performing Organization Address City/[facility] Phone Number [facility] DEPARTMENT OF PATHOLOGY AND [address] [place] [phone] [address] Comprehensive metabolic panel (02/12/2019 4:15 AM CDT)Only the most recent of9 resultswithin the time period is included. Sodium 141 135 - 148 [facility] mEq/L [facility] Potassium 4.0 3.5 - 5.0 [facility] mEq/L [facility] Chloride 107 98 - 112 mEq/L [facility] CO2 24 24 - 31 mEq/L [facility] Anion gap 10@ANIO 7 - 15 mEq/L [facility] BUN 6 6 - 20 mg/dL [facility] Creatinine 0.63 0.50 - 0.90 [facility] mg/dL [facility] Glucose 100 (H) 65 - 99 mg/dL [facility] Calcium 8.6 8.3 - 10.2 [facility] mg/dL [facility] Protein 6.1 (L) 6.3 - 8.3 g/dL [facility] Comment: HOSPITAL 4.6-7.0 g/dL 1 week 4.4-7.6 g/dL 7 months-1year5.1-7.3 g/dL 1-2 years5.6-7.5 g/dL >3 years6.0-8.0 g/dL 18-150 6.3-8.3 g/dL Albumin 2.6 (L) 3.5 - 5.0 g/dL [facility] A/G ratio 0.7 0.7 - 3.8 [facility] Alkaline phosphatase 67 35 - 104 U/L [facility] AST 16 10 - 35 U/L [facility] ALT 16 5 - 50 U/L [facility] Total bilirubin 0.4 0.0 - 1.2 [facility] mg/dL HOSPITAL Specimen Plasma specimen Performing Organization Address City/[facility]/Zipcode Phone Number [facility] DEPARTMENT OF PATHOLOGY AND [address] [place] [address] [address] Lipase level (01/11/2019 4:00 AM CDT)Only the most recent of4 resultswithin the time period is included. Lipase 192 (H) 13 - 60 U/L [facility] Specimen Plasma specimen Performing Organization Address City/[facility]/Zipcode Phone Number [facility] DEPARTMENT OF PATHOLOGY AND [address] [place] [address] GENOMIC MEDICINE [facility] [address] [place] [id number] ECG 12 lead (01/10/2019 9:11 AM CDT)Only the most recent of4 resultswithin the time period is included. Ventricular rate 59 [facility] MUSE Atrial rate 59 [facility] MUSE AL interval 144 [facility] MUSE QRSD interval 82 [facility] MUSE QT interval 432 [facility] QTC interval 427 [facility] MUSE P axis 1 58 [facility] MUSE QRS axis 1 29 [facility] MUSE T wave axis 63 [facility] MUSE EKG impression Sinus bradycardia with [facility] MUSE sinus arrhythmia-Cannot rule out Anterior infarct , age undetermined-Abnormal ECG- Specimen Narrative Performed At Performing Organization Address City/[facility] Phone Number [facility] MUSE [address] [place] [address] Urine drugs of abuse screen (01/10/2019 5:00 AM CDT) Pathologist [facility] Amphetamine screen, Negative [place] urine [facility] Barbiturate screen, Negative [place] urine [facility] Benzodiazepine Negative [place] screen, urine [facility] Cannabinoid screen, Negative [place] urine [facility] Cocaine screen, urine Negative [facility] Methadone metabolite Negative [place] (EDDP), urine [facility] Opiates screen, urine Positive (A) [facility] Oxycodone screen, Negative [place] urine [facility] Phencyclidine screen, Negative [place] urine [facility] Tricyclic screen, Negative [place] urine Comment: [place] Drug screen minimum concentration of detectability HOSPITAL Buvvlvkivloi8505 ng/mL Barbiturates 200 ng/mL Zefpvizpwqowpvf080 ng/mL Hpsslmh787 ng/mL Pzsnepipi998 ng/mL Dsxrbux529 ng/mL Veqomudsg807 ng/mL Phencyclidine 25 ng/mL Ndwvriuvwwxe25 ng/mL Drlgbrpzdi7801 ng/mL Results are from screening tests and should only be used for medical evaluation. Drug testing for legal purposes requires definitive (or confirmatory) testing methods, which are available upon request. Contact the laboratory if definitive testing is required. Specimen Urine Performing Organization Address City/[facility]/Zipcode Phone Number [facility] DEPARTMENT OF PATHOLOGY AND [address] [place] [address] Alcohol level, blood (01/09/2019 12:00 PM CDT) Alcohol None Detected mg/dL [facility] Comment: HOSPITAL Normal None Detected Legal Intoxication in [place]80 mg/dL (0.08%) - Whole Blood Toxic Kbdzqhusqzlzb609 mg/dL (0.2%) Potentially Szmbd793 - 500 mg/dL (0.35 - 0.5%) Alcohol percent None Detected % [facility] Specimen Plasma specimen Performing Organization Address [facility] Phone Number [facility] DEPARTMENT OF PATHOLOGY AND [address] [place] [phone] Lactic acid level (01/09/2019 4:00 AM CDT)Only the most recent of2 resultswithin the time period is included. Lactic acid 1.8 0.5 - 2.2 mmol/L [facility] Specimen Plasma specimen Performing Organization Address City/[facility] Phone Number [facility] DEPARTMENT OF PATHOLOGY AND [address] [place] [address] CT Abdomen Pelvis W Contrast (01/09/2019 12:32 AM CDT)Only the most recent of3 resultswithin the time period is included. Specimen Narrative Performed At CT ABDOMEN PELVIS W CONTRAST [facility] CLINICAL INDICATION:Abd painunspecified TECHNIQUE: Multidetector CT of the abdomen and pelvis was performed following intravenous administration of iodinated contrast with multiplanar reformats. CT scans are performed using radiation dose reduction techniques (iterative reconstruction and/or automated exposure control). Technical factors are evaluated and adjusted to ensure appropriate moderation of exposure. Automated dose management technology is applied to adjust radiation exposure while achieving a diagnostic quality image. COMPARISON:Abdomen/pelvis CT 12/16/2018. FINDINGS: Lung bases:Clear. Liver:Normal. Gallbladder and biliary:The gallbladder is absent. Clips within the gallbladder fossa. Pancreas:Abnormal edema predominantly centered about the pancreatic head, suspicious for acute pancreatitis. The appearance appears worsened when compared to the prior CT there are no necrotizing collection. Spleen:Normal. Gastrointestinal:Nonspecific gastric wall thickening. The appearance appears worsened when compared to the prior CT. Large and small bowel are normal in caliber. Appendix is visualized and appears normal. There are several colonic diverticula, without acute inflammatory change. Adrenals:Normal. Kidneys and ureters:No mass or hydronephrosis. Urinary bladder:Normal. Lymph nodes: There are clustered of prominence nodules in the gastrohepatic station of unclear significance.. Peritoneum:No ascites or free air. Vascular:Moderate atherosclerosis of the infrarenal aorta and its branches. Reproductive organs:2.1 cm left adnexal cystic structure, indeterminate. This is unchanged when compared to the prior study. Abdominal wall: Fat-containing umbilical hernia. Bones:Mild degenerative changes. IMPRESSION: 1. Findings likely representing acute pancreatitis. Correlate with clinical history and laboratory values. No drainable collection. 2. Nonspecific gastric wall thickening. There are mildly enlarged gastrohepatic lymph nodes. This could represent changes related to underlying chronic inflammatory process/gastritis. However malignancy is not excluded. Consider correlation with EGD. [facility]-[id number] Procedure Note [facility], Radiology Results Incoming - 01/09/2019 12:[address] ABDOMEN PELVIS W CONTRAST CLINICAL INDICATION: Abd pain unspecified TECHNIQUE: Multidetector CT of the abdomen and pelvis was performed following intravenous administration of iodinated contrast with multiplanar reformats. CT scans are performed using radiation dose reduction techniques (iterative reconstruction and/or automated exposure control). Technical factors are evaluated and adjusted to ensure appropriate moderation of exposure. Automated dose management technology is applied to adjust radiation exposure while achieving a diagnostic quality image. COMPARISON: Abdomen/pelvis CT 12/16/2018. FINDINGS: Lung bases: Clear. Liver: Normal. Gallbladder and biliary: The gallbladder is absent. Clips within the gallbladder fossa. Pancreas: Abnormal edema predominantly centered about the pancreatic head, suspicious for acute pancreatitis. The appearance appears worsened when compared to the prior CT there are no necrotizing collection. Spleen: Normal. Gastrointestinal: Nonspecific gastric wall thickening. The appearance appears worsened when compared to the prior CT. Large and small bowel are normal in caliber. Appendix is visualized and appears normal. There are several colonic diverticula, without acute inflammatory change. Adrenals: Normal. Kidneys and ureters: No mass or hydronephrosis. Urinary bladder: Normal. Lymph nodes: There are clustered of prominence nodules in the gastrohepatic station of unclear significance.. Peritoneum: No ascites or free air. Vascular: Moderate atherosclerosis of the infrarenal aorta and its branches. Reproductive organs: 2.1 cm left adnexal cystic structure, indeterminate. This is unchanged when compared to the prior study. Abdominal wall: Fat-containing umbilical hernia. Bones: Mild degenerative changes. IMPRESSION: 1. Findings likely representing acute pancreatitis. Correlate with clinical history and laboratory values. No drainable collection. 2. Nonspecific gastric wall thickening. There are mildly enlarged gastrohepatic lymph nodes. This could represent changes related to underlying chronic inflammatory process/gastritis. However malignancy is not excluded. Consider correlation with EGD. [facility]-[id number] Performing Organization Address City/State/Zipcode Phone Number [facility] [address] [place] [address] Urinalysis (01/08/2019 10:38 PM CDT)Only the most recent of3 resultswithin the time period is included. Glucose, UA Negative Negative [facility] Bilirubin, UA Negative Negative [facility] Ketones, UA Negative Negative [facility] Specific gravity, UA =<1.005 1.001 - 1.035 [facility] Blood, UA Trace (A) Negative [facility] pH, UA 6.5 5.0 - 8.5 [facility] Protein, UA Negative Negative [facility] Urobilinogen, UA <2.0 <2.0 [facility] Nitrite, UA Negative Negative [facility] Leukocyte esterase, Negative Negative [facility] [place] Color, UA Yellow [facility] Appearance, UA Clear [facility] Specimen Urine Performing Organization Address City/State/Zipcode Phone Number DEPARTMENT OF PATHOLOGY AND [address] [place] [address] GENOMIC MEDICINE, [facility] [address] [place] [address] [facility] Troponin, I-Stat (01/08/2019 10:38 PM CDT)Only the most recent of2 resultswithin the time period is included. [facility] Troponin, I-Stat 0.00 0.00 - 0.08 [facility] Comment: ng/mL [place] 0.09 - 1.49 ng/mlMay indicate increased risk of acute EMERGENCY CARE coronary syndrome. CENTER >=1.5 ng/mlConsistent with acute myocardial infarction. The diagnostic value of a single normal or non-diagnostic result is questionable.Serial samples at 2-6 hour intervals are required to rule out acute myocardial injury. Specimen Plasma specimen Performing Organization Address City/State/Zipcode Phone Number DEPARTMENT OF PATHOLOGY AND [address] [place] [address] POC glucose (12/22/2018 8:54 PM CDT)Only the most recent of11 resultswithin the time period is included. [facility] POC glucose 124 (H) 65 - 99 mg/dL [facility] Comment: HOSPITAL [facility] Notified RN Meter ID: [id number] Rigger Helper: Avi Horn Specimen Performing Organization Address City/State/Zipcode Phone Number [facility] DEPARTMENT OF PATHOLOGY AND [address] [place] [phone] Potassium level (12/22/2018 5:06 AM CDT) [facility] Potassium 3.7 3.5 - 5.0 mEq/L [facility] Specimen Plasma specimen Performing Organization Address City/[facility] Phone Number [facility] DEPARTMENT OF PATHOLOGY AND [address] [place] [phone] Basic metabolic panel (12/21/2018 6:00 AM CDT)Only the most recent of6 resultswithin the time period is included. [facility] Sodium 134 (L) 135 - 148 mEq/L [facility] Potassium 3.2 (L) 3.5 - 5.0 mEq/L [facility] Chloride 96 (L) 98 - 112 mEq/L [facility] CO2 22 (L) 24 - 31 mEq/L [facility] Anion gap 16@ANIO (H) 7 - 15 mEq/L [facility] BUN 9 6 - 20 mg/dL [facility] Creatinine 0.59 0.50 - 0.90 mg/dL [facility] Glucose 134 (H) 65 - 99 mg/dL [facility] Calcium 9.1 8.3 - 10.2 mg/dL [facility] Specimen Plasma specimen Performing Organization Address City/State/Zipcode Phone Number [facility] DEPARTMENT OF PATHOLOGY AND [address] [place] [phone] GENOMIC MEDICINE [facility] [address] [place] [address] IgG subclasses (12/20/2018 8:40 PM CDT) Immunoglobulin G 470 240 - 1,118 [facility] REF [facility] subclass 1 Comment: mg/dL REFERENCE INTERVAL: Immunoglobulin G Subclass 1 Access complete set of age- and/or gender-specific reference intervals for this test in the [facility] ([employer]). Immunoglobulin G 108 (L) 124 - 549 [facility] subclass 2 Comment: mg/dL REFERENCE INTERVAL: Immunoglobulin G Subclass 2 Access complete set of age- and/or gender-specific reference intervals for this test in the [facility] ([employer]). Immunoglobulin G 75 21 - 134 [facility] subclass 3 Comment: mg/dL REFERENCE INTERVAL: Immunoglobulin G Subclass 3 Access complete set of age- and/or gender-specific reference intervals for this test in the [facility] ([employer]). Immunoglobulin G 11 1 - 123 [facility] subclass 4 Comment: mg/dL The total IgG (mg/dL) can be derived by the sum of the subclasses IgG1, IgG2, IgG3 and IgG4 values. However, a confirmatory and more precise total IgG is available by the nephelometric method of total IgG (Test # [id number]). REFERENCE INTERVAL: Immunoglobulin G Subclass 4 Access complete set of age- and/or gender-specific reference intervals for this test in the [facility] ([employer]). Performed by [facility], [address] [place] [address] [email or web address], Matt Harris MD - Lab. Director Specimen Serum Performing Organization Address City/[facility]/Zipcode Phone Number [facility] [address] [place] [address] [facility] [address] [place] [address] XR Abdomen 1 Vw Portable (12/20/2018 2:01 PM CDT)Only the most recent of2 resultswithin the time period is included. Specimen Narrative Performed At [facility] 1 [facility] CL[facility]ICAL INDICATION:Check tube position COMPARISON:December 19, 2018 IMPRESSION: The distal aspect of a feeding tube is curled within proximal jejunal loops in midabdomen. The bowel gas pattern is nonspecific with mild gaseous distention of some small bowel loops in the left lower abdomen. Clips in the right upper quadrant abdomen related prior cholecystectomy. Osseous structures are intact. [facility]-[id number] Procedure Note Interface, Radiology Results Incoming - 12/20/2018 2:06 PM CDT XR ABDOMEN 1 VW PORTABLE CLINICAL INDICATION: Check tube position COMPARISON: December 19, 2018 IMPRESSION: The distal aspect of a feeding tube is curled within proximal jejunal loops in midabdomen. The bowel gas pattern is nonspecific with mild gaseous distention of some small bowel loops in the left lower abdomen. Clips in the right upper quadrant abdomen related prior cholecystectomy. Osseous structures are intact. [facility]-[id number] Performing Organization Address City/[facility]/Zipcode Phone Number [facility] [address] [place] [address] Surgical pathology request (12/19/2018 12:09 PM CDT)Only the most recent of2 resultswithin the time period is included. [facility] DEPARTMENT OF PATHOLOGY AND GENOMIC MEDICINE Surgical pathology See link below [facility] DEPARTMENT OF report for PDF Lab PATHOLOGY AND Report GENOMIC MEDICINE Result status This is Final [facility] DEPARTMENT OF Report for PATHOLOGY AND [id number] GENOMIC MEDICINE Specimen Performing Organization Address City/[facility]/Zipcode Phone Number [facility] DEPARTMENT OF PATHOLOGY AND [address] [place] [address] GENOMIC MEDICINE MRI Abdomen W Wo Contrast (12/18/2018 2:02 PM CDT) Specimen Narrative Performed At EXAMINATION:[facility] CLINICAL HISTORY:Abd paingastroenteritis or colitis suspected TECHNIQUE: Multiplanar multisequence MR images of the abdomen were obtained pre - and post dynamic intravenous administration of Gadolinium.MRCP images were obtained with 3-D reconstructions on the acquisition scanner under concurrent supervision. COMPARISON:CT, 12/16/2018 FINDINGS: Lung bases: It is important to note that MRI is not the modality of choice to evaluate the lung bases. Taking this into consideration, dependent atelectasis is seen. No focal consolidation. No pulmonary mass. Trace pleural fluid. No sizable, drainable pleural effusion. Heart is within normal limits of size. No sizable pericardial effusion. Visualized esophagus is unremarkable in appearance. Liver: Well-circumscribed, nonnodular contour. Subcentimeter hepatic cyst is seen within the left hepatic lobe laterally. No suspicious focal hepatic lesion is seen. Mild amount of perihepatic free fluid is noted. Gallbladder: Surgically absent. The common duct is nondilated. No obstructing choledocholithiasis is seen. No intrahepatic biliary dilatation is identified. Pancreas: Evidence for diffuse pancreatic enhancement, enlargement, and peripancreatic edema. No focal pancreatic mass is seen. No pancreatic parenchymal necrosis. The pancreatic duct is not dilated. No obstructing stone is seen. No peripancreatic abscess identified. Spleen: Unremarkable. Trace perisplenic fluid is present. GI system: Stomach is unremarkable in appearance. Partially visualized small and large bowel are normal in caliber. No pneumoperitoneum is identified. Adrenal glands: Unremarkable. Kidneys: Symmetric in shape, size, and appearance. No irregular renal mass, obstructing calculus, or hydronephrosis is identified. Lymph nodes: No lymphadenopathy is identified. Vasculature:: Flow voids are maintained suggesting patency. Osseous structures: No suspicious osseous lesion is seen. No evidence for an acute, displaced osseous fracture. No osseous edema. IMPRESSION: Marked pancreatic inflammatory changes consistent with acute pancreatitis. No pancreatic mass, parenchymal necrosis, obstructing pancreatic duct lithiasis, pancreatic duct dilatation, nor peripancreatic abscess is seen. Trace/small amount of perihepatic and perisplenic fluid noted. Patient is status post cholecystectomy. The common duct is nondilated and without evidence of obstructing choledocholithiasis. [facility]-[id number] Procedure Note [facility], Radiology Results Incoming - 12/18/2018 9:59 PM CDT EXAMINATION: MRI ABDOMEN W WO CONTRAST CLINICAL HISTORY: Abd pain gastroenteritis or colitis suspected TECHNIQUE: Multiplanar multisequence MR images of the abdomen were obtained pre - and post dynamic intravenous administration of Gadolinium. MRCP images were obtained with 3-D reconstructions on the acquisition scanner under concurrent supervision. COMPARISON: CT, 12/16/2018 FINDINGS: Lung bases: It is important to note that MRI is not the modality of choice to evaluate the lung bases. Taking this into consideration, dependent atelectasis is seen. No focal consolidation. No pulmonary mass. Trace pleural fluid. No sizable, drainable pleural effusion. Heart is within normal limits of size. No sizable pericardial effusion. Visualized esophagus is unremarkable in appearance. Liver: Well-circumscribed, nonnodular contour. Subcentimeter hepatic cyst is seen within the left hepatic lobe laterally. No suspicious focal hepatic lesion is seen. Mild amount of perihepatic free fluid is noted. Gallbladder: Surgically absent. The common duct is nondilated. No obstructing choledocholithiasis is seen. No intrahepatic biliary dilatation is identified. Pancreas: Evidence for diffuse pancreatic enhancement, enlargement, and peripancreatic edema. No focal pancreatic mass is seen. No pancreatic parenchymal necrosis. The pancreatic duct is not dilated. No obstructing stone is seen. No peripancreatic abscess identified. Spleen: Unremarkable. Trace perisplenic fluid is present. GI system: Stomach is unremarkable in appearance. Partially visualized small and large bowel are normal in caliber. No pneumoperitoneum is identified. Adrenal glands: Unremarkable. Kidneys: Symmetric in shape, size, and appearance. No irregular renal mass, obstructing calculus, or hydronephrosis is identified. Lymph nodes: No lymphadenopathy is identified. Vasculature:: Flow voids are maintained suggesting patency. Osseous structures: No suspicious osseous lesion is seen. No evidence for an acute, displaced osseous fracture. No osseous edema. IMPRESSION: Marked pancreatic inflammatory changes consistent with acute pancreatitis. No pancreatic mass, parenchymal necrosis, obstructing pancreatic duct lithiasis, pancreatic duct dilatation, nor peripancreatic abscess is seen. Trace/small amount of perihepatic and perisplenic fluid noted. Patient is status post cholecystectomy. The common duct is nondilated and without evidence of obstructing choledocholithiasis. [facility]-[id number] Performing Organization Address City/State/Zipcode Phone Number [facility] [address] [place] [address] Troponin (12/17/2018 4:15 AM CDT)Only the most recent of2 resultswithin the time period is included. Troponin <0.30 0.00 - 0.30 [facility] Comment: ng/mL HOSPITAL 0.30 - 1.49 ng/mlMay indicate increased risk of acute coronary syndrome. >=1.5 ng/mlConsistent with acute myocardial infarction. The diagnostic value of a single normal or non-diagnostic result is questionable.Serial samples at 2-6 hour intervals are required to rule out acute myocardial injury. Specimen Plasma specimen Performing Organization Address City/[facility]/Zipcode Phone Number [facility] DEPARTMENT OF PATHOLOGY AND [address] [place] [phone] [place] [phone] XR Chest 1 Vw Portable (12/16/2018 6:12 PM CDT) Specimen Narrative Performed At EXAMINATION:XR CHEST 1 VW PORTABLE [facility] CLINICAL HISTORY:chest pain, Respiratory Distress Syndrome COMPARISON:No priors IMPRESSION: Heart and mediastinum and bony structures are appropriate for age. Lungs are clear. [facility]-[id number] Procedure Note Hm Interface, Radiology Results Incoming - 12/16/2018 6:21 PM CDT EXAMINATION: XR CHEST 1 VW PORTABLE CLINICAL HISTORY: chest pain, Respiratory Distress Syndrome COMPARISON: No priors IMPRESSION: Heart and mediastinum and bony structures are appropriate for age. Lungs are clear. [facility]-[id number] Performing Organization Address [facility] Phone Number [facility] [address] [place] [address] Phosphorus level (12/16/2018 10:11 AM CDT) Phosphorus 4.3 2.4 - 4.5 mg/dL [facility] Specimen Plasma specimen Performing Organization Address City/[facility]/Zipcode Phone Number [facility] DEPARTMENT OF PATHOLOGY AND [address] [place] [phone] [address] Lipid panel (12/16/2018 10:11 AM CDT)Only the most recent of2 resultswithin the time period is included. Cholesterol 199 <200 mg/dL [facility] Triglycerides 595 (H) <150 mg/dL [facility] HDL cholesterol 39 (L) >40 mg/dL [facility] LDL cholesterol 77Comment: Result <100 mg/dL [place] obtained by direct [place] LDL measurement [facility] Comment: [place] Total Cholesterol (mg/dL) HOSPITAL <200 Desirable 468-370Mljtkoeleh-eioc >=240High Triglycerides (mg/dL) <150 Normal [id number]-qbgg 200-499High >=500Very high HDL Cholesterol (mg/dL) <40Low (male) <40Low (female) LDL Cholesterol (mg/dL) <100 Optimal 100-129Near or above optimal 132-142Fmcutndqwp-letd 160-189High >=190Very high Risk Catergories that modify [...] mg/dL) Specimen Plasma specimen Performing Organization Address City/[facility] Phone Number [facility] DEPARTMENT OF PATHOLOGY AND [address] [place] [phone] [address] Amylase level (12/16/2018 4:34 AM CDT)Only the most recent of2 resultswithin the time period is included. Amylase 24 14 - 97 U/L [facility] Specimen Plasma specimen Performing Organization Address City/[facility] Phone Number DEPARTMENT OF PATHOLOGY AND [id number] [place] [id number] [place] [address] [facility] ECG ED Preliminary Interpretation - Not an Order (12/16/2018 4:29 AM CDT) Narrative Performed At Jude Burns MD 12/16/20186:34 AM ECG ED Preliminary Interpretation - Not an Order Performed by: Jude Burns MD Authorized by: Jude Burns MD ECG reviewed by ED Physician in the absence of a hog sawyer: yes Interpretation: Interpretation: normal Rate: ECG rate:80 ECG rate assessment: normal Rhythm: Rhythm: sinus rhythm Ectopy: Ectopy: none QRS: QRS axis:Normal Conduction: Conduction: normal ST segments: ST segments:Normal T waves: T waves: normal MRI Brain W Wo Contrast (08/21/2018 2:21 PM POWER TRANSFORMER REPAIR SUPERVISOR) Specimen Narrative Performed At EXAMINATION: MRI BRAIN W [...] maxillary and ethmoid sinuses without air-fluid levels. [facility]-[id number] Procedure Note Interface, Radiology Results Incoming - 08/21/2018 3:46 PM POWER TRANSFORMER REPAIR SUPERVISOR EXAMINATION: MRI BRAIN W WO CONTRAST [...] maxillary and ethmoid sinuses without air-fluid levels. [facility]-[id number] Performing Organization Address City/State/Zipcode Phone Number [facility] [address] [place] [address] EEG (routine) (08/21/2018 9:08 AM POWER TRANSFORMER REPAIR SUPERVISOR) Narrative Performed At EEG AWAKE AND DROWSY Date of Service: 08/21/18 Awake Recording: The occipital dominant rhythm is 10 Hz. 18-22 Hz activity is present in all regions. Sleep Recording:No sleep was recorded. Hyperventilation: Not performed. Photic Stimulation: Not performed. Impression The background activity is within the range of normal variation. No lateralized or epileptiform activity was recorded. ICD-10 Code: R569 Helicobacter pylori Abs (08/19/2018 10:52 AM POWER TRANSFORMER REPAIR SUPERVISOR) Helicobacter pylori Negative Negative [facility] Specimen Blood Performing Organization Address City/[facility] Phone Number [facility] DEPARTMENT OF PATHOLOGY AND [address] [place] [id number] C difficile toxin (08/18/2018 1:45 PM POWER TRANSFORMER REPAIR SUPERVISOR) Clostridium No Clostridium difficle toxin present [facility] difficile toxin Comment: HOSPITAL Specimen Information Specimen Source: Stool Specimen Site: Nonpreserved Specimen Stool - Nonpreserved Performing Organization Address City/[facility] Phone Number [facility] DEPARTMENT OF PATHOLOGY AND [address] [place] [address] [place] UGI W KUB (08/17/2018 12:12 PM POWER TRANSFORMER REPAIR SUPERVISOR) Specimen Narrative Performed At EXAMINATION:FL UGI W KUB [...] consistent with gastritis/duodenitis. No evidence of perforation. [facility]-[id number] Procedure Note Hm Interface, Radiology Results Incoming - 08/17/2018 12:21 PM POWER TRANSFORMER REPAIR SUPERVISOR EXAMINATION: [place] UGI W KUB CLINICAL [...] consistent with gastritis/duodenitis. No evidence of perforation. [facility]-[id number] Performing Organization Address [facility] Phone Number [address] [address] Partial thromboplastin time, activated (08/17/2018 5:15 AM POWER TRANSFORMER REPAIR SUPERVISOR) PTT 27.6 23.0 - 36.0 [facility] Comment: [facility] PTT therapeutic range for unfractionated heparin is 61.0-112.0 seconds which corresponds to Anti-Xa 0.3-0.7 U/ml. Specimen Blood Performing Organization Address [facility] Phone Number [facility] DEPARTMENT OF PATHOLOGY AND [address] [place] [phone] [place] [phone] Prothrombin time with INR (08/17/2018 5:15 AM POWER TRANSFORMER REPAIR SUPERVISOR) Prothrombin time 13.3 11.5 - 14.5 [facility] INR 1.0 [place] Comment: [place] The International Normalized Ratio (INR) is a therapeutic HOSPITAL monitoring tool for patients who are stable on oral anticoagulant therapy. An INR of 2.0-3.0 is suggested for deep vein thrombosis/pulmonary embolism. Specimen Blood Performing Organization Address [facility] Phone Number [facility] DEPARTMENT OF PATHOLOGY AND [address] [place] [phone] [place] [phone] Magnesium level (08/17/2018 4:00 AM POWER TRANSFORMER REPAIR SUPERVISOR) Magnesium 2.0 1.6 - 2.6 mg/dL [facility] Specimen Plasma specimen Performing Organization Address [facility] Phone Number [facility] DEPARTMENT OF PATHOLOGY AND [address] [place] [phone] [place] [phone] Hepatic function panel (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) Albumin 4.0 3.3 - 5.5 g/dL [facility] Alkaline phosphatase 86 42 - 141 U/L [facility] EMERGENCY [facility] ALT 29 10 - 47 U/L [facility] EMERGENCY [facility] AST 27 11 - 38 U/L [facility] Bilirubin direct 0.3 0.0 - 0.3 mg/dL [facility] Total bilirubin 0.5 0.2 - 1.6 mg/dL [facility] Protein 8.2 (H) 6.4 - 8.1 g/dL [facility] Specimen Plasma specimen Performing Organization Address City/State/Zipcode Phone Number DEPARTMENT OF PATHOLOGY AND [address] [place] [address] GENOMIC MEDICINE, [place] [address] EMERGENCY CARE CENTER after 04/11/2018 Advance Directives Patient has advance care planning documents, and code status on file. For more information, please contact:Scottie Mckeon[address] [place] [address] Code Status Date Activated Date Inactivated Comments Full Code 01/09/2019 3:22 AM 01/12/2019 6:08 PM Code Status decision reached by: Patient
[2019-04-12] MEDS ORDERED: NA CHLORIDE 0.9% 1,000 ML ONE (02:24)
[2019-04-12 02:31] LABS: Absolute Lymphocytes (CBC) 2.9 K/uL (0.7-4.9); Basophils % 0.7 % (0-1.3); Eosinophils % 4.2 % (0-4.4); Hematocrit 40.1 % (36.0-45.0); Lymphocytes % 39.3 % (15.3-44.8); MPV 9.5 fL (7.6-11.3); RBC Red Blood Cell Count 4.22 M/uL (3.86-4.86)
[2019-04-12 02:49] LABS: ALT/SGPT 28 U/L (12-78); AST/SGOT 18 U/L (15-37); Albumin 3.4 g/dL (3.4-5.0); Alkaline Phosphatase 75 U/L (45-117); BUN Blood Urea Nitrogen 8 mg/dL (7-18); Bicarbonate 22 mmol/L (21-32); Bilirubin Direct < 0.1 mg/dL (0-0.2); Bilirubin Total 0.5 mg/dL (0.2-1.0); Glucose Level 115 mg/dL (74-106); Lipase 79 U/L (73-393); Potassium 4.1 mmol/L (3.5-5.1); Protein, Total 7.4 g/dL (6.4-8.2); Sodium Level 141 mmol/L (136-145)
[2019-04-12] MEDS ORDERED: HYDROMORPHONE HCL 0.5 MG/0.5 ML INJ ONE (02:55)
--- NOTE | 2019-04-12 03:45 | ER ---
Nurse's Notes [facility] Name: Pawel Burroughs Age: 54 yrs Sex: Female : 1965 Arrival Date: 04/12/2019 Time: 01:44 Bed 6 Private MD: Diagnosis: Generalized abdominal pain;Other chronic pancreatitis Presentation: 04/12 01:45 Presenting complaint: Patient states: LUQ pain that radiates to mid back. Feels like tl2 pancreatitis flare up. Pt reports having an appointment on April 26 for possible surgery. Transition of care: patient was not received from another setting of care. Onset of symptoms was April 11, 2019. Risk Assessment: Do you want to hurt yourself or someone else? Patient reports no desire to harm self or others. Initial Sepsis Screen: Does the patient meet any 2 criteria? No. Patient's initial sepsis screen is negative. Does the patient have a suspected source of infection? No. Patient's initial sepsis screen is negative. Care prior to arrival: Medication(s) given: zofran 4 mg, fentanyl 100 mg IV initiated. 20 GA, in the left wrist. 01:45 Method Of Arrival: EMS: [facility] tl2 01:45 Acuity: SUNDAY 3 tl2 Triage Assessment: 01:48 General: Appears in no apparent distress. uncomfortable, Behavior is calm, cooperative, tl2 appropriate for age. Pain: Complains of pain in left upper quadrant Pain radiates to left mid back Pain currently is 1 out of 10 on a pain scale. at worst was 8 out of 10 on a pain scale. Neuro: Level of Consciousness is awake, alert, obeys commands, Oriented to person, place, time, situation. Respiratory: Airway is patent Respiratory effort is even, unlabored, Respiratory pattern is regular, symmetrical. GI: Reports upper abdominal pain, nausea, Patient currently denies vomiting. : No signs and/or symptoms were reported regarding the genitourinary system. Derm: Skin is pink, warm \\T\\ dry. Historical: - Allergies: 01:47 Demerol; tl2 - Home Meds: 01:48 None [Active]; tl2 - PMHx: 01:47 Pancreatitis; Rheumatoid Arthritis; Seizures; TIA; ADD/ADHD; tl2 - PSHx: :47 Cholecystectomy; stents in pancreas; tl2 - Immunization history:: Adult Immunizations up to date. - Social history:: Smoking status: Patient uses tobacco products, smokes one-half pack cigarettes per day. - Ebola Screening: : No symptoms or risks identified at this time. Screenin:57 Fall Risk No fall in past 12 months (0 pts). Secondary diagnosis (15 points) IV access ao (20 points). Ambulatory Aid- None/Bed Rest/Nurse Assist (0 pts). Gait- Normal/Bed Rest/Wheelchair (0 pts) Mental Status- Oriented to own ability (0 pts). Total Bernal Fall Scale indicates Low Risk Score (25-44 pts). Fall prevention measures have been instituted. Placed close to Nursing Station 1:1 attendant Assigned to Pt. Frequent Obs/Assesments occuring. 01:58 Abuse screen: Denies threats or abuse. Denies injuries from another. Nutritional ao screening: No deficits noted. Tuberculosis screening: Assessment: 01:47 General: Appears in no apparent distress. comfortable, Behavior is calm, cooperative, ao appropriate for age. Pain: Complains of pain in posterior aspect of left lateral abdomen and anterior aspect of left lateral abdomen Pain currently is 1 out of 10 on a pain scale. Neuro: Level of Consciousness is awake, alert, obeys commands, Oriented to person, place, time, situation, Appropriate for age Moves all extremities. Full function Speech is normal. Cardiovascular: Capillary refill < 3 seconds Patient's skin is warm and dry. Respiratory: Airway is patent Respiratory effort is even, unlabored, Breath sounds are clear bilaterally. GI: Abdomen is non-distended, Bowel sounds present X 4 quads. Reports lower abdominal pain, nausea, Pain is 1 out of 10 on a pain scale. : No signs and/or symptoms were reported regarding the genitourinary system. EENT: No signs and/or symptoms were reported regarding the EENT system. Derm: Skin is pink, warm \\T\\ dry. Skin temperature is warm. Musculoskeletal: Circulation, motion, and sensation intact. Range of motion: intact in all extremities. 02:30 Reassessment: Patient appears in no apparent distress at this time. pt c/o increased tl2 pain and spasms, notified, see MAR. 03:07 Reassessment: Pt states pain medication only worked for about 10 minutes and states, "I tl2 think I need a scan, the pain is really bad this time". notified, no new orders at this time. 03:42 Reassessment: PT states that she spoke with her Doctor's itinerant teacher assistant at [facility] and tl2 that he wanted her to leave right now and drive to [facility]. Pt refused CT scan here and that her friend was coming to pick her up. Pt verbalized understanding of risk of leaving against medical advice and refused the offer to be transferred to [facility]. stated that she no longer wanted to receive care here and wanted to drive to [facility]. Vital Signs: 01:48 BP 138 / 114; Pulse 95; Resp 18; Temp 98.1(O); Pulse Ox 97% on R/A; Weight 64.41 kg; tl2 Height 5 ft. 1 in. (154.94 cm); Pain 10/11; 02:30 BP 123 / 96; Pulse 81; Resp 18; Pulse Ox 97% on R/A; tl2 01:48 Body Mass Index 26.83 (64.41 kg, 154.94 cm) tl2 ED Course: 01:44 Patient arrived in ED. tl2 01:45 Checo Ramírez RN is Primary Nurse. ao 01:47 Triage completed. tl2 01:48 Arm band placed on right wrist. tl2 01:52 Patient has correct armband on for positive identification. Pulse ox on. NIBP on. ao 02:07 Moose Eduardo MD is Attending Physician. gs 02:13 Maintain EMS IV. Dressing intact. Good blood return noted. Site clean \\T\\ dry. Gauge \\T\\ ao site: 20 G L Wrist. 03:20 Report received from MYAH Larson. ao 03:45 No provider procedures requiring assistance completed. IV discontinued, intact, tl2 bleeding controlled, No redness/swelling at site. Pressure dressing applied. Administered Medications: 02:12 Drug: NS 0.9% 1000 ml Route: IV; Rate: 1 bolus; Site: left forearm; ao 03:46 Follow up: IV Status: Completed infusion; IV Intake: 1000ml tl2 02:48 Drug: Dilaudid 0.5 mg Route: IVP; Site: left wrist; tl2 02:55 Follow up: Response: No adverse reaction; Pain is decreased tl2 Intake: 03:46 IV: 1000ml; Total: 1000ml. tl2 Outcome: 03:44 Discharge ordered by . gs 03:45 Discharged to home ambulatory, with friend. tl2 03:45 Condition: unchanged 03:45 Discharge instructions given to patient, Instructed on follow up and referral plans. 03:46 Patient left the ED. tl2 Signatures: Checo Ramírez RN RN ao Marsha King RN RN tl2 Moose Eduardo MD MD gs Corrections: (The following items were deleted from the chart) 01:54 01:47 GI: Abdomen is non-distended, ao ao 03:07 01:52 BP 123 / 96; Pulse 81bpm; Resp 18bpm; Pulse Ox 97% RA; tl2 tl2
--- NOTE | 2019-04-12 03:45 | EDPHYS ---
Physician Documentation [facility] Name: Pawel Burroughs Age: 54 yrs Sex: Female : 1965 Arrival Date: 04/12/2019 Time: 01:44 Bed 6 Private MD: ED Physician Moose Eduardo HPI: 04/12 03:38 This 54 yrs old Female presents to ER via EMS with unknown complaint. gs 03:38 The patient presents with abdominal pain in the upper abdomen. gs 03:39 Onset: The symptoms/episode began/occurred 2 day(s) ago, and became worse and became gs persistent. The symptoms do not radiate. Associated signs and symptoms: Pertinent negatives: chest pain, vomiting, vomiting blood. The symptoms are described as sharp. Modifying factors: The symptoms are alleviated by nothing, the symptoms are aggravated by food. Severity of pain: At its worst the pain was severe in the emergency department the pain is unchanged. The patient has experienced similar episodes in the past, chronically. The patient has been recently seen by a physician: says having procedure possible drain placement . Historical: - Allergies: 01:47 Demerol; tl2 - Home Meds: 01:48 None [Active]; tl2 - PMHx: 01:47 Pancreatitis; Rheumatoid Arthritis; Seizures; TIA; ADD/ADHD; tl2 - PSHx: 01:47 Cholecystectomy; stents in pancreas; tl2 - Immunization history:: Adult Immunizations up to date. - Social history:: Smoking status: Patient uses tobacco products, smokes one-half pack cigarettes per day. - Ebola Screening: : No symptoms or risks identified at this time. ROS: 03:39 Constitutional: gs 03:39 All other systems are negative. Exam: 03:39 Head/Face: Normocephalic, atraumatic. Eyes: Pupils equal round and reactive to light, gs extra-ocular motions intact. Lids and lashes normal. Conjunctiva and sclera are non-icteric and not injected. Cornea within normal limits. Periorbital areas with no swelling, redness, or edema. ENT: Nares patent. No nasal discharge, no septal abnormalities noted. Tympanic membranes are normal and external auditory canals are clear. Oropharynx with no redness, swelling, or masses, exudates, or evidence of obstruction, uvula midline. Mucous membranes moist. Neck: Trachea midline, no thyromegaly or masses palpated, and no cervical lymphadenopathy. Supple, full range of motion without nuchal rigidity, or vertebral point tenderness. No Meningismus. Chest/axilla: Normal chest wall appearance and motion. Nontender with no deformity. No lesions are appreciated. Cardiovascular: Regular rate and rhythm with a normal S1 and S2. No gallops, murmurs, or rubs. Normal PMI, no JVD. No pulse deficits. Respiratory: Lungs have equal breath sounds bilaterally, clear to auscultation and percussion. No rales, rhonchi or wheezes noted. No increased work of breathing, no retractions or nasal flaring. Back: No spinal tenderness. No costovertebral tenderness. Full range of motion. Skin: Warm, dry with normal turgor. Normal color with no rashes, no lesions, and no evidence of cellulitis. MS/ Extremity: Pulses equal, no cyanosis. Neurovascular intact. Full, normal range of motion. Neuro: Awake and alert, GCS 15, oriented to person, place, time, and situation. Cranial nerves II-XII grossly intact. Motor strength 5/5 in all extremities. Sensory grossly intact. Cerebellar exam normal. Normal gait. 03:39 Constitutional: The patient appears alert, awake, uncomfortable. 03:39 Abdomen/GI: Palpation: mild abdominal tenderness, in all quadrants, rebound tenderness, is not appreciated. Vital Signs: 01:48 BP 138 / 114; Pulse 95; Resp 18; Temp 98.1(O); Pulse Ox 97% on R/A; Weight 64.41 kg; tl2 Height 5 ft. 1 in. (154.94 cm); Pain 1/10; 02:30 BP 123 / 96; Pulse 81; Resp 18; Pulse Ox 97% on R/A; tl2 01:48 Body Mass Index 26.83 (64.41 kg, 154.94 cm) tl2 MDM: 02:08 Patient medically screened. 03:39 Differential diagnosis: gastroesophageal reflux disease, non-specific abd pain, gs pancreatitis, Peptic Ulcer Disease. Data reviewed: vital signs, nurses notes, lab test result(s), radiologic studies. Response to treatment: the patient's symptoms have markedly improved after treatment, discussed with patient normal findings, suggested CT possible pseudocyst causing pain. pt declined stated she wanted to go to her doctor at [facility]. offered transfer to [facility] pt declined transfer. will discharge against medical advice. 04/12 02:07 Order name: Basic Metabolic Panel; Complete Time: 02:56 04/12 02:07 Order name: CBC with Diff; Complete Time: 02:56 04/12 02:07 Order name: Hepatic Function; Complete Time: 02:56 04/12 02:07 Order name: Lipase; Complete Time: :56 04/12 02:07 Order name: IV Saline Lock; Complete Time: 02:12 04/12 02:07 Order name: Labs collected and sent; Complete Time: 02:12 Administered Medications: 02:12 Drug: NS 0.9% 1000 ml Route: IV; Rate: 1 bolus; Site: left forearm; ao 03:46 Follow up: IV Status: Completed infusion; IV Intake: 1000ml tl2 02:48 Drug: Dilaudid 0.5 mg Route: IVP; Site: left wrist; tl2 02:55 Follow up: Response: No adverse reaction; Pain is decreased tl2 Disposition: 04/12/19 03:44 Discharged to Home. Impression: Generalized abdominal pain, Other chronic pancreatitis. - Condition is Stable. - Discharge Instructions: Abdominal Pain, Adult. - Medication Reconciliation Form, Thank You Letter, Antibiotic Education, Prescription Opioid Use form. - Follow up: Private Physician; When: 1 - 2 days; Reason: Re-evaluation by your physician. Signatures: Dispatcher [employer] Checo Escobar RN RN ao Marsha King RN RN tl2 Moose Eduardo MD MD Corrections: (The following items were deleted from the chart) 03:46 03:44 04/12/2019 03:44 Discharged to Home. Impression: Generalized abdominal pain; tl2 Other chronic pancreatitis. Condition is Stable. Forms are Medication Reconciliation Form, Thank You Letter, Antibiotic Education, Prescription Opioid Use. Follow up: Private Physician; When: 1 - 2 days; Reason: Re-evaluation by your physician.
[2019-04-12 03:52] VITALS: TEMP 98.1; O2SAT 97
[2019-04-12 03:53] VITALS: BP 123/96
== END 2019-04-12 03:46 | disposition home or self-care (01) ==
LOC: ER 01:42
DX: K86.1 Other chronic pancreatitis (principal); R10.84 Generalized abdominal pain; F17.210 Nicotine dependence, cigarettes, uncomplicated; Z88.6 Allergy status to analgesic agent
CPT/HCPCS: 36415; 80048; 80076; 83690; 85025; 96361; 96374; 99283; J1170; J7030

== ENCOUNTER 2020-05-26 08:14 | Emergency (ER) | payer OTHER ==
--- OUTSIDE RECORDS SUMMARY | 2020-05-26 08:46 | XMS REPORT | Clinical Summary ---
:1965 Author Organization [employer] Address [address] [place] [address] Care Team Providers Name Role Phone Asked, No Pcp Primary Care Provider Unavailable Allergies Active Allergy Reactions Severity Noted Date Comments Meperidine 08/16/2018 Medications Medication Sig Dispensed Refills Start Date End Date Status dicyclomine (BENTYL) Take 1 capsule 120 capsule 11 02/07/2019 0 02/07/2020 10 MG (10 mg total) capsuleIndications: by mouth 4 Abdominal pain, (four) times a unspecified day before abdominal location meals and nightly. 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 Never 08/16/2018 How many drinks containing alcohol do you have on a typical Not asked day when you are drinking? How often do you have six or more drinks on one occasion? No t asked Sex Assigned at Date Recorded Not on file Job Start Date Occupation Industry Not on file Not on file Not on file Travel History Travel Start Travel End No recent travel history available. Last Filed Vital Signs Not on file Plan of Treatment Health Maintenance Due Date Last Done Comments CERVICAL CANCER SCREENING 1984 BREAST CANCER SCREENING 2013 COLONOSCOPY SCREENING 2013 SHINGLES VACCINES (#1) 2013 INFLUENZA VACCINE 07/02/2020 Implants Implanted Type Area Psych Arnp Device Shelf Model / Identifier Expiration Serial / Date Lot Knee Implants, Knee Implants, Repairs, Repairs, Reconstruction Reconstruction Stent Advanix Pncreatic 5fr 7cm Str No Leading Jelena - [id number] Surgical Stents N/A: [facility] 10/13/2019 [id number] / Implanted: 01/10/[address] [facility] (Quantity not on file) N/A / [id number] Stent Bili Advnx Cntrbnd Magdiel 10fr 5cm - [id number] Surgical Sten ts N/A: [facility] 10/18/2020 [id number] / Implanted: 01/10/[address] 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
--- OUTSIDE RECORDS SUMMARY | 2020-05-26 08:48 | XMS REPORT | Continuity of Care Document ---
:1965 Author Organization [facility] t Address [address] Garcia. [address] [place] [address] Care Team Providers Name Role Phone Asked, Pcp Primary Care Physician Unavailable Vidya Whyte Attending Clinician Doctor Unassigned, Name Attending Clinician Unavailable Delon ZUÑIGA Attending Clinician Payers Payer Name Policy Type Policy Number Effective Date Expiration Date S ource Problems Condition Condition Condition Status Onset Resolution Last Treating Co mments Source Name Details Category Date Date Treatment Clinician Date Cyst of Cyst of Problem Active [place] pancreas Pancreas 5-21 da 00:00: Medical 00 Group Bilateral Bilateral Problem Active [place] arthritis Arthritis 5-21 da of knees of Knees 00:00: Medica l 00 Group Biliary Biliary Disease Active [place] colic colic 5-13 Methodi 00:00: st 00 [place] Disease Active [place] lithiasis lithiasis 4-11 Meth jessy 00:00: st 00 Acute Acute Disease Active [place] pancreatit pancreatit 4-10 Me thodi is is 00:00: st 00 Rheumatoid Rheumatoid Disease Active 2019-0 [place] arthritis arthritis 4-10 Meth jessy 00:00: st 00 Epigastric Epigastric Disease Active 2019-0 [facility] abdominal abdominal 4-05 Meth jessy pain pain 00:00: st 00 Weakness Weakness Disease Active 2019-0 [place] 4-05 Methodi 00:00: st 00 Biliary Biliary Disease Active 2019- [place] sludge sludge 4-05 Methodi 00:00: st 00 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 4-04 da is is 00:00: Medical 00 Group Cyst of Cyst of Problem Active [place] ovary Ovary 4-04 da 00:00: Medical 00 Group Pain in Pain in Problem Active 2018- [place] right knee Right Knee 4-04 da 00:00: Medical 00 Group Acute Acute Disease Active 2019- [place] recurrent recurrent 3-17 Meth jessy pancreatit pancreatit 00:00: st is is 00 Duodenal Duodenal Disease Active 2017-10 [place] rupture rupture 10-16 Methodi 00:00: st 00 Allergies, Adverse Reactions, Alerts Allergy Allergy Status Severity Reaction(s) Onset Inactive Treating Comm ents Source Name Type Date Date Clinician meperidi DA Active U 2020-0 [facility] [place] [facility] DA Active U 2020-0 [facility] m 2-25 [place] 00:[facility]ope [facility] meperidi DA Active U 2020-0 [facility] ne 1-17 [place] 00[facility]: [facility]ope [facility] meloxica DA Active U 2020-0 [facility] m 1-17 [place] 00:[facility]: Orthope 00 [facility] meloxica DA Active U 2020-0 [facility] m 1-16 [place] 00:[facility]: Orthope 00 [facility] meperidi DA Active U 2019-1 [facility] ne 1- [place] 00:00: Orthope 00 [facility] Meperidi Propensi Active 2017-10 [place] ne ty to 15 Methodi adverse 00:00: st reaction 00 s to drug Demerol Allergy Active [place] to da substanc [facility] e Group Dilaudid Allergy Active [place] to da [facility] Social History Social Habit Start Date Stop Date Quantity Comments Source History of tobacco Cigarette Smoker [place] use Religious History [facility] Alcohol Std Drinks Method ist History [facility] Alcohol Binge Religious Sex Assigned At [place] Religious Cigarettes smoked 2019-02-12 2019-02-12 [place] current (pack per 00:00:00 00:00:[address] day) - Reported Cigarette 2019-02-12 2019-02-12 [place] pack-years 00:00:00 00:00:00 Religious Alcohol intake 2019-02-12 2019-02-12 Current drinker [place] 00:00:00 00:00:00 of alcohol Religious (finding) Tobacco Comment 2019-02-11 2019-02-11 cutting back [place] 00:00:00 00:00:00 currently per pt Methodis t Alcohol Comment 2019-01-10 2019-01-10 social [place] 00:00:00 00:00:00 Religious History [facility] 2018-08-16 2018-08-[address] [place] [address] Alcohol Frequency 00:00:00 00:00:[address] Smoking Status Start Date Stop Date Source Current every day smoker 2019-02-12 00:00:00 Facundo aguirre Religious Medications Ordered Filled Start Stop Current Ordering Indication Dosage Frequency Signature Comments Components Source Medication Medication Date Date Medication? Clinician (SIG) Name Name dicyclomine 2019- No Abdominal 10mg Q.25D Take 1 [place] (BENTYL) 10 5-09 05-08 pain, capsule Met hodi MG capsule 00:00: 23:59 unspecified ([address] 00 :00 abdominal total) by location mouth 4 (four) times a day before meals and nightly. Keflex 500 Keflex 500 No 1capsul TID Keflex 500 [place] mg capsule mg capsule e(s) mg capsule da Take 1 Take 1 Take 1 Medical capsule 3 capsule 3 capsule 3 Group times a day times a day times a by oral by oral day by route. take route. take oral for 10 days for 10 days route. for UTI for UTI take for 10 days for UTI ProAir HFA ProAir HFA No ProAir HFA [place] 90 90 90 da mcg/actuati mcg/actuati mcg/actuat Medical on aerosol on aerosol ion Kevin up inhaler inhaler aerosol Inhale 2 Inhale 2 inhaler puffs every puffs every Inhale 2 4 hours by 4 hours by puffs inhalation inhalation every 4 route. route. hours by inhalation route. Vital Signs Vital Name Observation Time Observation Value Comments Source BP Diastolic 2020-02-20 00:00:00 74 mm[Hg] [facility] Height 2020-02-20 00:00:00 63 [in_i] [facility] BMI (Body Mass 2020-02-20 00:00:00 27.1 kg/m2 [facility] Medical Index) Group BP Systolic 2020-02-20 00:00:00 117 mm[Hg] [facility] Body Weight 2020-02-20 00:00:00 2448 [oz_av] [facility] BP Diastolic 2019-03-14 00:00:00 82 mm[Hg] [facility] Height 2019-03-14 00:00:00 63 [in_i] [facility] BMI (Body Mass 2019-03-14 00:00:00 25.2 kg/m2 [facility] Medical Index) Group BP Systolic 2019-03-14 00:00:00 126 mm[Hg] [facility] Body Weight 2019-03-14 00:00:00 2272 [oz_av] [facility] BP Diastolic 2019-01-03 00:00:00 80 mm[Hg] [facility] Height 2019-01-03 00:00:00 63 [in_i] [facility] BMI (Body Mass 2019-01-03 00:00:00 25.7 kg/m2 [facility] Medical Index) Group BP Systolic 2019-01-03 00:00:00 133 mm[Hg] [facility] Body Weight 2019-01-03 00:00:00 2320 [oz_av] [facility] Procedures Procedure Date / Time Performed Performing Clinician [facility] e unlisted imaging [facility]02[facility]20 [facility], abdomen, w/o 2020-02-04 00:00:00 Susan M edical contrast Group XR, knee, 1 or 2 view 2019-01-03 00:00[facility]00 [facility] Remove Tonsils and [facility] ical Adenoids Group Operative Procedure on [facility] Knee Group Procedure on [facility] Medica l Gallbladder Group Plan of Care Planned Activity Planned Date Details Comments Source Future Scheduled 2020-07-02 INFLUENZA VACCINE [place] [facility] Test 00:00:00 [code = INFLUENZA VACCINE] Diagnostic Test 2020-02-20 lipase, serum or [facility] Pending 00:00:00 plasma [code = Group lipase, serum or plasma] Diagnostic Test 2020-02-20 amylase, serum or [facility] Pending 00:00:00 plasma [code = Group amylase, serum or plasma] Diagnostic Test 2020-02-20 CMP, serum or plasma [facility] Pending 00:00:00 [code = CMP, serum or Group plasma] Diagnostic Test 2020-02-20 urinalysis, complete [facility] Pending 00:00:00 [code = urinalysis, Group complete] Future Scheduled [address] [facility] thodist Test 00:00:00 SCREENING [code = BREAST CANCER SCREENING] Future Scheduled 2013 COLONOSCOPY SCREENING [place] [facility] Test 00:00:00 [code = COLONOSCOPY SCREENING] Future Scheduled 2013 SHINGLES VACCINES [place] [facility] Test 00:00:00 (#1) [code = SHINGLES VACCINES (#1)] Future Scheduled [facility] malignant neoplasm of cervix (procedure) [code = 354943695] Encounters Start End Encounter Admission Attending Care Care Encounter Source Date/Time Date/Time Type Type Clinicians Facility Department ID 2020-02-20 2020-02-20 [place] Powell [facility] [place] - [id number] M atagor 00:00:00 00:00:00 MD Chris: Discovery hernandez [address] [place] [address] [place] [id number] , Ph. 2020-02-04 2020-02-04 Sofía BALBUENA [place] - [id number] M atagor 00:00:00 00:00:00 Florence Amos [facility] Medical [place] INFORMATION CLERK: [address] [place] [address] [address] [address] , Ph. 2019-10-31 2019-10-31 Alycia Tran [facility] [id number] 14:11:28 18:51:00 Eufemia Preciado [id number] [place] [id number] [place] [id number] 2019-10-31 2019-10-31 Orders Doctor SOILA [id number] 00:00:00 00:00:00 Only Unassigned, LEAH [id number] [place] [id number] 2019-06-19 2019-06-19 Telephone RASHEL Jernigan [id number] 00:00:00 00:00:[address] [facility] [id number] [facility] [id number] 2019-03-14 2019-03-14 [place] [facility] [place] - [id number] M atagor 00:00:00 00:00:00 MD Chris: [address] [phone] , Ph. 2019-01-03 2019-01-03 [place] [facility] [place] - [id number] M atagor 00:00:00 00:00:00 MD Chris: [employer] [address] [phone] , Ph. Results Test Description Test Time Test Comments Results Result Comments Source Urinalysis complete panel - Urine 2020-02-04 05:25:00 Test Item Value Reference Range Interpretation Comme nts Color of Urine by Auto (test code = 80559-8) yellow Appearance of Urine (test code = 5767-9) clear clear Glucose [Presence] in Urine by Automated test strip negative ne gative (test code = 70055-4) Bilirubin.total [Mass/volume] in Urine (test code = negative ne gative 1978-03) Ketones [Mass/volume] in Urine by Automated test negative negat jhoan strip (test code = 18374-1) Specific gravity of Urine by Automated test strip 1.022 1.00 3-1.030 (test code = 01890-8) blood urine (test code = blood urine) negative negative pH of Urine (test code = 2756-5) 5.500 5-9 protein urine (UA) (test code = protein urine (UA)) trace ne gative Urobilinogen [Presence] in Urine (test code = =2.0 0.2-1.0 H 52237-1) Nitrite [Presence] in Urine by Test strip (test negative negati ve code = 5802-4) Leukocyte esterase [Presence] in Urine by Automated =1 ne gative H test strip (test code = 71025-1) Erythrocytes [#/volume] in Urine by Automated count <1 0- 5 (test code = 798-9) Leukocytes [#/area] in Urine sediment by Automated =11-14 0-5 H count (test code = 81783-7) Epithelial cells [Presence] in Urine sediment by =6-10 0-5 Light microscopy (test code = 02216-8) Bacteria identified in Urine by Culture (test code small(1 non e detect = 630-4) Casts [#/area] in Urine sediment by Automated count =20-29 no ne detect H (test code = 10288-8) urine culture added? (test code = urine culture no. contaminated. added?) [facility] Group[facility] complete panel - [id number] 05:25:00 Test Item Value Reference Range Interpretation Comments Color of Urine by Auto yellow (test code = 41668-1) Appearance of Urine (test clear clear code = 5767-9) Glucose [Presence] in Urine negative negative by Automated test strip (test code = 21738-6) Bilirubin.total negative negative [Mass/volume] in Urine (test code = 1977-6) Ketones [Mass/volume] in negative negative Urine by Automated test strip (test code = 66268-9) Specific gravity of Urine 1.022 1.003-1.030 by Automated test strip (test code = 60125-3) blood urine (test code = negative negative blood urine) pH of Urine (test code = 5.500 5-9 2756-5) protein urine (UA) (test trace negative code = protein urine (UA)) Urobilinogen [Presence] in =2.0 0.2-1.0 H Urine (test code = 54002-5) Nitrite [Presence] in Urine negative negative by Test strip (test code = 5802-4) Leukocyte esterase =1 negative H [Presence] in Urine by Automated test strip (test code = 33543-7) Leukocytes [#/area] in =11-14 0-5 H Urine sediment by Automated count (test code = 18724-0) Epithelial cells [Presence] =6-10 0-5 in Urine sediment by Light microscopy (test code = 01797-8) Bacteria identified in small(1 none detect Urine by Culture (test code = 630-4) Casts [#/area] in Urine =20-29 none detect H sediment by Automated count (test code = 37843-4) urine culture added? (test no. contaminated. code = urine culture added?) [facility] W Auto Differential panel - [id number] 04:55:00 Test Item Value Reference Range Interpretation Comments white blood count (test code = 8.3 K/uL 4.0-11.5 white blood count) red blood count (test code = red 4.30 M/uL 3.80-5.20 blood count) hemoglobin (test code = 14.0 g/dL 10.5-15.7 hemoglobin) hematocrit (test code = 40.7 % 34.0-50.0 hematocrit) MCV [Entitic volume] (test code = 94.7 fL 86-100 98955-2) mean corpuscular hemoglobin (test 32.6 pg 26.2-33.4 code = mean corpuscular hemoglobin) mean corpuscular HGB conc (test 34.4 g/dL 30-34 H code = mean corpuscular HGB conc) red cell distribution width (test 12.6 % 12.0-15.5 code = red cell distribution width) platelet count (test code = 245 K/uL 165-450 platelet count) mean platelet volume (test code = 9.8 fL 9.4-12.6 mean platelet volume) Segmented neutrophils/100 54.0 % 44.4-80.1 leukocytes in Blood (test code = 45631-1) Immature granulocytes [#/volume] 0.0 K/uL 0.0-0.03 in Blood (test code = 53271-1) lymphocyte% (test code = 36.3 % 10.0-50.0 lymphocyte%) mono % (test code = mono %) 5.1 % 3.6-12.0 eos % (test code = eos %) 4.2 % 0.0-5.4 Basophils/100 leukocytes in 0.2 % 0.1-1.2 Unspecified specimen (test code = 81834-3) Band form neutrophils [#/volume] 4.48 K/uL 1.56-6.13 in Blood (test code = 69793-5) Lymphocytes [#/volume] in 3.0 K/uL 1.18-3.74 Unspecified specimen by Automated count (test code = 09120-6) mono # (test code = mono #) 0.42 K/uL 0.24-0.86 eos # (test code = eos #) 0.35 K/uL 0.04-0.36 basophil # (test code = basophil 0.02 K/uL 0.01-0.08 #) NRBC% (test code = NRBC%) 0 /100 WBC 0-0.2 NRBC# (test code = NRBC#) 0 K/uL [facility], method unspecified - [id number] 04:55:00NeutrophilsBandLymphocyteAtypical LymphMonocyteEosinophilBasophilPlatelet EstimatePlatelet MorphologyToxic GranulationHypersegmented PolysMagnolia Regional Health CenterComprehensive metabolic 2000 panel - Serum or [id number] 04:55:00 Test Item Value Reference Range Interpretation Comments Glucose [Mass/volume] in Serum or 121 mg/dL 74-106 H Plasma (test code = 2345-7) Urea nitrogen [Mass/volume] in 9 mg/dL 6-20 Serum or Plasma (test code = 3094-0) osmolality calculated,serum (test 281 mOsm/kg 280-300 code = osmolality calculated,serum) creatinine (test code = 0.7 mg/dL 0.50-0.90 creatinine) glomerular filtration rate (test >60.00 code = glomerular filtration rate) Urea nitrogen/Creatinine [Mass 12.9 12-20 Ratio] in Serum or Plasma (test code = 3097-3) sodium level (test code = sodium 141 mmol/L 135-145 level) potassium level (test code = 4.0 mmol/L 3.5-5.2 potassium level) chloride level (test code = 105 mmol/L 98-108 chloride level) CO2 (test code = CO2) 26 mmol/L 21-32 anion gap (test code = anion gap) 14.0 mEq/L 12-20 calcium level (test code = 9.5 mg/dL 8.6-10.0 calcium level) total protein (test code = total 7.1 g/dL 6.6-8.7 protein) albumin (test code = albumin) 4.1 g/dL 3.5-5.2 globulin (test code = globulin) 3.0 gm/dL A/G ratio (test code = A/G ratio) 1.4 >1.0 bilirubin,total (test code = 0.4 mg/dL 0.0-1.2 bilirubin,total) AST/SGOT (test code = AST/SGOT) 19 U/L 15-32 Alanine aminotransferase 21 U/L 0-33 [Enzymatic activity/volume] in Serum or Plasma (test code = 1742-6) Alkaline phosphatase [Enzymatic 73 U/L 35-105 activity/volume] in Serum or Plasma (test code = 6768-6) [facility] CenterLipase [Enzymatic activity/volume] in Serum or Plasma 2020-02-04 04:55:00 Test Item Value Reference Range Interpretation Comments lipase (test code = lipase) 17 U/L 13-60 [facility] W Auto Differential panel - [id number] 04:55:00 Test Item Value Reference Range Interpretation Comments white blood count (test code = 8.3 K/uL 4.0-11.5 white blood count) red blood count (test code = red 4.30 M/uL 3.80-5.20 blood count) hemoglobin (test code = 14.0 g/dL 10.5-15.7 hemoglobin) hematocrit (test code = 40.7 % 34.0-50.0 hematocrit) MCV [Entitic volume] (test code = 94.7 fL 86-100 22860-9) mean corpuscular hemoglobin (test 32.6 pg 26.2-33.4 code = mean corpuscular hemoglobin) mean corpuscular HGB conc (test 34.4 g/dL 30-34 H code = mean corpuscular HGB conc) red cell distribution width (test 12.6 % 12.0-15.5 code = red cell distribution width) platelet count (test code = 245 K/uL 165-450 platelet count) mean platelet volume (test code = 9.8 fL 9.4-12.6 mean platelet volume) Segmented neutrophils/100 54.0 % 44.4-80.1 leukocytes in Blood (test code = 44712-6) Immature granulocytes [#/volume] 0.0 K/uL 0.0-0.03 in Blood (test code = 34276-8) lymphocyte% (test code = 36.3 % 10.0-50.0 lymphocyte%) mono % (test code = mono %) 5.1 % 3.6-12.0 eos % (test code = eos %) 4.2 % 0.0-5.4 Basophils/100 leukocytes in 0.2 % 0.1-1.2 Unspecified specimen (test code = 68477-4) Band form neutrophils [#/volume] 4.48 K/uL 1.56-6.13 in Blood (test code = 07886-1) Lymphocytes [#/volume] in 3.0 K/uL 1.18-3.74 Unspecified specimen by Automated count (test code = 67648-8) mono # (test code = mono #) 0.42 K/uL 0.24-0.86 eos # (test code = eos #) 0.35 K/uL 0.04-0.36 basophil # (test code = basophil 0.02 K/uL 0.01-0.08 #) NRBC% (test code = NRBC%) 0 /100 WBC 0-0.2 NRBC# (test code = NRBC#) 0 K/uL [facility] GroupDifferential panel, method unspecified - [id number] 04:55:00NeutrophilsBandLymphocyteAtypical LymphMonocyteEosinophilBasophilPlatelet EstimatePlatelet MorphologyToxic GranulationHypersegmented PolysMat[facility] Medical GroupComprehensive metabolic 2000 panel - Serum or [id number] 04:55:00 Test Item Value Reference Range Interpretation Comments Glucose [Mass/volume] in Serum or 121 mg/dL 74-106 H Plasma (test code = 2345-7) Urea nitrogen [Mass/volume] in 9 mg/dL 6-20 Serum or Plasma (test code = 3094-0) osmolality calculated,serum (test 281 mOsm/kg 280-300 code = osmolality calculated,serum) creatinine (test code = 0.7 mg/dL 0.50-0.90 creatinine) glomerular filtration rate (test >60.00 code = glomerular filtration rate) Urea nitrogen/Creatinine [Mass 12.9 12-20 Ratio] in Serum or Plasma (test code = 3097-3) sodium level (test code = sodium 141 mmol/L 135-145 level) potassium level (test code = 4.0 mmol/L 3.5-5.2 potassium level) chloride level (test code = 105 mmol/L 98-108 chloride level) CO2 (test code = CO2) 26 mmol/L 21-32 anion gap (test code = anion gap) 14.0 mEq/L 12-20 calcium level (test code = 9.5 mg/dL 8.6-10.0 calcium level) total protein (test code = total 7.1 g/dL 6.6-8.7 protein) albumin (test code = albumin) 4.1 g/dL 3.5-5.2 globulin (test code = globulin) 3.0 gm/dL A/G ratio (test code = A/G ratio) 1.4 >1.0 bilirubin,total (test code = 0.4 mg/dL 0.0-1.2 bilirubin,total) AST/SGOT (test code = AST/SGOT) 19 U/L 15-32 Alanine aminotransferase 21 U/L 0-33 [Enzymatic activity/volume] in Serum or Plasma (test code = 1742-6) [facility] CenterLip[facility] [Enzymatic activity/volume] in Serum or Plasma 2020-02-04 04:55:00 Test Item Value Reference Range Interpretation Comments lipase (test code = lipase) 17 U/L 13-60 [facility] ABD PELVIS [id number] 01:38:00 Name: PENELOPE NELSON [facility] : 1965 Age/S: 54 / F [address] [place] Unit #: [id number] Loc: Ivon Gomez [address] Phys: Shae Leroy MD Acct: [id number] Dis Date: Status: REG ER PHONE #: [phone] Exam Date: 08/12/2019126 FAX #: Reason: LUQ pain EXAMS: CPT: [id number] CT ABD PELVIS W/CONT 03407 LOCATION: H43 EXAM: - CT ABD PELVIS W/CONT HISTORY: LUQ pain TECHNIQUE: Axial imaging of the abdomen and pelvis from the lung base to the pubic symphysis followingadministration of 100 Isovue-300 intravenous contrast. Sagittal and coronal reconstructions. CT scan performed using appropriate/available dose optimization/reduction techniques. DLP not provided COMPARISON: None. FINDINGS: Lung base:Mild bibasilar atelectasis. The heart size is normal. No pericardial or pleural effusion. Liver/spleen: The liver is normal in size measuring 18 cm in length. There is diffuse decreased attenuation of the liver parenchyma consistent with fatty infiltration. Spleen is unremarkable. Biliary system: The gallbladder is surgically absent. No biliary duct dilatation. Pancreas: Unremarkable. Homogeneous enhancement, and no surrounding edema change. Adrenal glands: Normal. Kidneys: Unremarkable. Vascular: Moderate atherosclerosis normal caliber abdominal aorta. Normal portal venous opacification. Lymph nodes: No abdominal lymphadenopathy. Pelvic structures: The urinary bladder is unremarkably distended. No pelvic lymphadenopathy or free fluid. The uterus and adnexa are normal for age. A 2.5 x 2.0 cm left ovarian cystic lesion is present. Gastrointestinal tract: No abnormal bowel dilatation. Normal caliber appendix is identified. No focal fluid collections, ascites or PAGE 1 Signed Report (CONTINUED) Name: PENELOPE NELSON [facility] : 1965 Age/S: 54 / F [address] [facility] Unit #: [id number]: Ivon Gomez [address] Phys: Shae Leroy MD Acct: [id number] Dis Date: Status: REG ER PHONE #: [phone] Exam Date: 08/12/2019 012 FAX #: Reason: LUQ pain EXAMS: CPT: [id number] CT ABD PELVIS W/CONT 53096 <Continued> evidence of pneumoperitoneum. Bones andsoft tissues: Osseous structures are intact. IMPRESSION: No CT evidence of acute intra-abdominal pathology. Unremarkable CT appearance of the pancreas. 2.5 cm left ovarian cystic lesion. In a patient of age, this is nearly certainly benign. Follow-up ultrasound assessment at a 6-12 month interval is recommended to ensure stability or resolution. at 0138 Reported and signed by: Janis Ferguson M.D. CC: Shae Leroy MD Technologist:Renetta Og RT(R)(CT)(MRI) CTDI: DLP: TrnscbDate/Time: 08/12/2019 (0138) [email or web address] Orig Print D/T: S: 08/12/2019 (0141) PAGE 2 Signed Report [id number] 00:38:00 Test Item Value Reference Range Interpretation Comments ACETAMINOPHEN (test code = ACET) <2.0 mcG/ML 10.0-30.0 L Last Dose Date: 08/11/19Last Dose Time: 1999COMPREHENSIVE METABOLIC PANEL 2019-08-12 00:26:00 Test Item Value Reference Range Interpretation Comments SODIUM (test code = NA) 137 mmol/L 134-147 N POTASSIUM (test code = 4.2 mmol/L 3.4-5.0 N K) CHLORIDE (test code = 106 mmol/L 100-108 N CL) CARBON DIOXIDE (test 24 mmol/L 21-32 N code = CO2) ANION GAP (test code = 7.0 GAP calc 4.0-15.0 N GAP) GLUCOSE (test code = 142 MG/DL 70-110 H GLU) BLOOD UREA NITROGEN 9 MG/DL 7-18 N (test code = BUN) GLOMERULAR FILTRATION >=60 max estimate >60 RATE (test code = GFR) estGFR CREATININE (test code = 0.7 MG/DL 0.6-1.0 N CREAT) TOTAL PROTEIN (test code 8.7 G/DL 6.4-8.2 H = PROT) ALBUMIN (test code = 3.8 G/DL 3.4-5.0 N ALB) GLOBULIN (test code = 4.9 GM/dL GLOB) ALBUMIN/GLOBULIN RATIO 0.8 RATIO 1.2-2.2 L (test code = A/G) CALCIUM (test code = CA) 10.6 MG/DL 8.5-10.1 H BILIRUBIN TOTAL (test 0.50 MG/DL 0.2-1.2 N code = BILT) SGOT/AST (test code = 18 Unit/L 15-37 N AST) SGPT/ALT (test code = 32 Unit/L 12-78 N ALT) ALKALINE PHOSPHATASE 95 Unit/L 45-117 N TOTAL (test code = ALKP) [id number] 00:26:00 Test Item Value Reference Range Interpretation Comments LIPASE (test code = LIP) 107 Unit/L 114-286 L [id number] 00:26:00 Test Item Value Reference Range Interpretation Comments MAGNESIUM (test code = MAG) 1.9 MG/DL 1.8-2.4 N [id number] 00:26:00 Test Item Value Reference Range Interpretation Comments ALCOHOL (test code = ALC) 113 MG/DL 0-10 HH CBC W/AUTO [id number] 00:12:00 Test Item Value Reference Range Interpretation Comments WHITE BLOOD CELL (test code = 8.8 K/mm3 3.5-11.0 N WBC) RED BLOOD CELL (test code = RBC) 4.58 M/mm3 4.70-6.10 L HEMOGLOBIN (test code = HGB) 14.9 G/DL 10.4-14.9 N HEMATOCRIT (test code = HCT) 43.6 % 31.5-44.1 N MEAN CELL VOLUME (test code = 95.2 Fl 84.5-98.6 N MCV) MEAN CELL HGB (test code = MCH) 32.5 pg 27.0-34.2 N MEAN CELL HGB CONCETRATION (test 34.2 G/DL 31.5-34.0 H code = MCHC) RED CELL DISTRIBUTION WIDTH (test 14.3 SD 11.5-14.5 N code = RDW) PLATELET COUNT (test code = PLT) 281.0 K/mm3 150-450 N MEAN PLATELET VOLUME (test code = 10.10 fL 7.0-10.5 N MPV) NEUTROPHIL % (test code = NT%) 52.2 % 40-76 N LYMPHOCYTE % (test code = LY%) 39.2 % 20.5-51.1 N MONOCYTE % (test code = MO%) 5.6 % 1.7-9.3 N EOSINOPHIL % (test code = EO%) 2.8 % 0.0-6.0 N BASOPHIL % (test code = BA%) 0.2 % 0.0-2.0 N NEUTROPHIL # (test code = NT#) 4.60 K/mm3 1.8-7.6 N LYMPHOCYTE # (test code = LY#) 3.5 K/mm3 0.6-3.2 H MONOCYTE # (test code = MO#) 0.5 K/mm3 0.3-1.1 N EOSINOPHIL # (test code = EO#) 0.3 K/mm3 0.0-0.4 N BASOPHIL # (test code = BA#) 0.0 K/mm3 0.0-0.1 N MANUAL DIFF REQUIRED (test code = NO DIFF/SCN CRITERIA MDIFF)
[2020-05-26] MEDS ORDERED: DIAZEPAM 10 MG/2 ML INJ SYRINGE ONE (08:52)
--- NOTE | 2020-05-26 09:07 | RAD REPORT ---
EXAM DESCRIPTION: CTSpine Lumbar Wo Con05/26/2020 8:36 am CLINICAL HISTORY: Back injury with back pain status post fall TECHNIQUE: Computed axial tomography lumbar spine was obtained with coronal and sagittal reconstruct ion. All CT scans are performed using dose optimization technique as appropriate and may include automated exposure control or mA/KV adjustment according to patient size. FINDINGS: A concave depression is present within the superior endplate of the L4 vertebral body prob ably representing invagination of a Schmorl's node. A fracture line is not visualized. Disc bulge L3-4 No fracture or dislocation seen. No high-grade stenosis visualized IMPRESSION: A concave depression is present within the superior endplate of the L4 vertebral body pr obably representing invagination of a Schmorl's node. A fracture line is not visualized. If clinicall y indicated further evaluation could be obtained with MRI to see there is significant surrounding kwan ma within the vertebral body.
--- NOTE | 2020-05-26 09:17 | RAD REPORT ---
EXAM DESCRIPTION: CT - Pelvis Wo Cont - 05/26/2020 8:36 am CLINICAL HISTORY: Right hip pain status post fall COMPARISON: None. TECHNIQUE: Computed axial tomography of the pelvis was obtained. Coronal and sagittal reconstruction performed All CT scans are performed using dose optimization technique as appropriate and may include automated exposure control or mA/KV adjustment according to patient size. FINDINGS: No fracture or dislocation is seen. Muscles are normal size and density. A subcutaneous contusion is not noted The left ovary is borderline prominent in this postmenopausal patient IMPRESSION: No fracture seen The left ovary is borderline prominent in this postmenopausal patient it is recommended that the pat ient have a pelvic ultrasound in 3 months to assess stability
[2020-05-26 09:43] LABS: Absolute Lymphocytes (CBC) 1.6 K/uL (0.7-4.9); Basophils % 0.5 % (0-1.3); Hematocrit 38.4 % (36.0-45.0); Lymphocytes % 23.8 % (15.3-44.8); MPV 8.5 fL (7.6-11.3); RBC Red Blood Cell Count 4.08 M/uL (3.86-4.86)
[2020-05-26 09:56] LABS: BUN Blood Urea Nitrogen 7 mg/dL (7-18); Bicarbonate 27 mmol/L (21-32); Glucose Level 110 mg/dL (74-106); Potassium 3.7 mmol/L (3.5-5.1); Sodium Level 142 mmol/L (136-145)
--- NOTE | 2020-05-26 10:34 | RAD REPORT ---
EXAM DESCRIPTION: MRI - Lumbar Spine Wo Con - 05/26/2020 10:00 am CLINICAL HISTORY: Abnormal radiologic exam. Back pain status post trauma COMPARISON: May 26, 2020 cat scan TECHNIQUE: Sagittal T1, T2 and STIR weighted sequences were obtained. Axial T1 and T2 sequences were obtained through the lumbar disc levels. FINDINGS: Mild compression involves the superior endplate of L4 vertebral body. Compression estimate d to be 10% A subtle linear area of abnormal signal indicates fracture. There is no retropulsion of fracture frag ment into the spinal canal Mild spondylosis involves the lumbar spine IMPRESSION: Mild acute compression fracture involving the L4 vertebral body .
[2020-05-26] MEDS ORDERED: HYDROCODONE/APAP 7.5/325 MG TAB ONE (11:07)
--- NOTE | 2020-05-26 11:14 | EDPHYS ---
Physician Documentation [facility] Name: Pawel Burroughs Age: 55 yrs Sex: Female : 1965 Arrival Date: 05/26/2020 Time: 08:20 Bed 2 Private MD: ED Physician Rik Olson HPI: 05/26 08:36 This 55 yrs old Female presents to ER via EMS with complaints of Back Pain. snw 08:43 Onset: The symptoms/episode began/occurred suddenly, just prior to arrival, and became snw persistent. Location: Pt unable to tell if pop she felt is in low back or right hip, on flexion of right hip, pain definitely in low back. Associated signs and symptoms: The patient has no apparent associated signs or symptoms. The problem was sustained pt was pulling on a generator and felt a sudden pop in her low back/right hip, unable to move right leg for a bit.. Severity of symptoms: At their worst the symptoms were moderate, severe. The patient has not experienced similar symptoms in the past. It is unknown whether or not the patient has recently seen a physician. Historical: - Allergies: 08:24 Demerol; ph 08:24 Methotrexate; ph 08:24 meloxicam; ph - PMHx: 08:24 ADD/ADHD; Pancreatitis; Rheumatoid Arthritis; Seizures; TIA; pancreatic cancer; ph - PSHx: 08:24 Cholecystectomy; stents in pancreas; ph - Immunization history:: Adult Immunizations unknown. ROS: 08:36 Constitutional: Negative for fever, chills, and weight loss, Eyes: Negative for injury, snw pain, redness, and discharge, ENT: Negative for injury, pain, and discharge, Neck: Negative for injury, pain, and swelling, Cardiovascular: Negative for chest pain, palpitations, and edema, Respiratory: Negative for shortness of breath, cough, wheezing, and pleuritic chest pain, Abdomen/GI: Negative for abdominal pain, nausea, vomiting, diarrhea, and constipation, : Negative for injury, bleeding, discharge, and swelling, MS/Extremity: Negative for injury and deformity, Skin: Negative for injury, rash, and discoloration, Neuro: Negative for headache, weakness, numbness, tingling, and seizure, Psych: Negative for depression, anxiety, suicide ideation, homicidal ideation, and hallucinations. 08:36 Back: Positive for decreased range of motion, pain with movement, of the low back area. Exam: 08:35 Constitutional: This is a well developed, well nourished patient who is awake, alert, snw and in no acute distress. Head/Face: Normocephalic, atraumatic. Eyes: Pupils equal round and reactive to light, extra-ocular motions intact. Lids and lashes normal. Conjunctiva and sclera are non-icteric and not injected. Cornea within normal limits. Periorbital areas with no swelling, redness, or edema. ENT: Nares patent. No nasal discharge, no septal abnormalities noted. Tympanic membranes are normal and external auditory canals are clear. Oropharynx with no redness, swelling, or masses, exudates, or evidence of obstruction, uvula midline. Mucous membranes moist. Neck: Trachea midline, no thyromegaly or masses palpated, and no cervical lymphadenopathy. Supple, full range of motion without nuchal rigidity, or vertebral point tenderness. No Meningismus. Chest/axilla: Normal chest wall appearance and motion. Nontender with no deformity. No lesions are appreciated. Cardiovascular: Regular rate and rhythm with a normal S1 and S2. No gallops, murmurs, or rubs. Normal PMI, no JVD. No pulse deficits. Respiratory: Lungs have equal breath sounds bilaterally, clear to auscultation and percussion. No rales, rhonchi or wheezes noted. No increased work of breathing, no retractions or nasal flaring. Abdomen/GI: Soft, non-tender, with normal bowel sounds. No distension or tympany. No guarding or rebound. No evidence of tenderness throughout. Skin: Warm, dry with normal turgor. Normal color with no rashes, no lesions, and no evidence of cellulitis. MS/ Extremity: Pulses equal, no cyanosis. Neurovascular intact. Full, normal range of motion. Neuro: Awake and alert, GCS 15, oriented to person, place, time, and situation. Cranial nerves II-XII grossly intact. Motor strength 5/5 in all extremities. Sensory grossly intact. Cerebellar exam normal. Normal gait. Psych: Awake, alert, with orientation to person, place and time. Behavior, mood, and affect are within normal limits. 08:35 Back: pain, that is moderate, of the low back area, ROM is painful, normal spinal alignment noted, vertebral tenderness, is not appreciated, muscle spasm, is appreciated in the low back area. Vital Signs: 08:21 BP 170 / 55; Pulse 74; Resp 18; Temp 97.5; Pulse Ox 100% ; Weight 72.57 kg; Height 5 ph ft. 1 in. (154.94 cm); 09:34 BP 165 / 56; Pulse 72; Resp 18; Pulse Ox 98% on R/A; ph 11:00 BP 147 / 64; Pulse 68; Resp 18; Temp 97.9; Pulse Ox 99% on R/A; ph 08:21 Body Mass Index 30.23 (72.57 kg, 154.94 cm) ph MDM: 08:26 Patient medically screened. [facility] 08:47 Data reviewed: vital signs, nurses notes. Data interpreted: Pulse oximetry: on room air snw is 100 %. Interpretation: normal. Counseling: I had a detailed discussion with the patient and/or guardian regarding: the historical points, exam findings, and any diagnostic results supporting the discharge/admit diagnosis, lab results, radiology results. 05/26 08:22 Order name: Chem 7; Complete Time: 10:34 snw 05/26 08:22 Order name: CBC with Diff; Complete Time: 10:34 snw 05/26 08:22 Order name: CT Pelvis wo Cont; Complete Time: 09:33 snw 05/26 08:22 Order name: CT Lumbar Spine Wo Con; Complete Time: 09:08 snw 05/26 09:13 Order name: MRI Lumbar Spine wo Con; Complete Time: 10:35 snw 05/26 08:22 Order name: SL; Complete Time: 08:31 snw 05/26 10:42 Order name: Misc. Order: 4 point walker; Complete Time: 10:51 snw Administered Medications: 08:55 Drug: Valium 10 mg Route: IVP; Site: right forearm; ph 11:09 Follow up: Response: No adverse reaction ph 11:08 Drug: [place] (7.5 mg-325 mg) 1 tabs Route: PO; ph 11:08 Follow up: Response: No adverse reaction ph Disposition: 19:45 Co-signature as Attending Physician, Rik Olson MD I agree with the assessment and [facility] plan of care. Disposition: 05/26/20 11:14 Discharged to Home. Impression: Wedge compression fracture of fourth lumbar vertebra. - Condition is Stable. - Discharge Instructions: Back Pain, Adult, Spinal Compression Fracture, Heat Therapy, Back Injury Prevention. - Prescriptions for Tylenol- Codeine #3 300-30 mg Oral Tablet - take 2 tablet by ORAL route every 6 hours As needed; 30 tablet. orphenadrine citrate 100 mg Oral Tablet Sustained Release - take 1 tablet by ORAL route 2 times per day As needed; 20 tablet. - Medication Reconciliation Form, Thank You Letter, Antibiotic Education, Prescription Opioid Use form. - Follow up: Emergency Department; When: As needed; Reason: Worsening of condition. Follow up: Private Physician; When: 2 - 3 days; Reason: Recheck today's complaints, Continuance of care, Re-evaluation by your physician. Signatures: Dispatcher [employer] EDMS Rik Olson MD MD cha Waters, Shelly, AIR CARRIER OPERATIONS INSPECTOR-C AIR CARRIER OPERATIONS INSPECTOR-CsnRosemarie West RN RN ph Corrections: (The following items were deleted from the chart) 08:43 08:36 The patient presents with pain that is acute, with no known mechanism of injury, snw snw 08:43 08:36 Onset: The symptoms/episode began/occurred gradually, 1 month(s) ago, and became snw persistent snw 08:43 08:36 The problem was sustained from unknown cause, snw snw 08:43 08:36 Dr. Remy had pt give blood and urine sample. Changed some vitamins, urine snw clear., snw 08:47 08:36 The symptoms are located in the low back, snw snw 08:47 08:36 The pain does not radiate. snw snw 08:47 08:36 Associated signs and symptoms: The patient has no apparent associated signs or snw symptoms, snw 08:47 08:36 Modifying factors: The patient symptoms are alleviated by nothing, the patient snw symptoms are aggravated by standing, snw 08:47 08:36 Severity of symptoms: At their worst the symptoms were moderate, snw snw 08:47 08:36 It is unknown whether or not the patient has had similar symptoms in the past, snwsnw 11:34 11:14 05/26/2020 11:14 Discharged to Home. Impression: Wedge compression fracture of ph fourth lumbar vertebra. Condition is Stable. Forms are Medication Reconciliation Form, Thank You Letter, Antibiotic Education, Prescription Opioid Use. Follow up: Emergency Department; When: As needed; Reason: Worsening of condition. Follow up: Private Physician; When: 2 - 3 days; Reason: Recheck today's complaints, Continuance of care, Re-evaluation by your physician. snrachelle
--- NOTE | 2020-05-26 11:14 | ER ---
Nurse's Notes [facility] Name: Pawel Burroughs Age: 55 yrs Sex: Female : 1965 Arrival Date: 05/26/2020 Time: 08:20 Bed 2 Private MD: Diagnosis: Wedge compression fracture of fourth lumbar vertebra Presentation: 05/26 08:21 Chief complaint: EMS states: Was moving generator and felt pop in lower back, states, " ph I fell over the thing and had trouble getting up." Reports that pain radiates to R hip area, denies other injury, IV initiated and 50 mcg Fentanyl given, also received 1 gr Tylenol PO, VSS. Coronavirus screen: Client denies travel out of the [place] in the last 14 days. Ebola Screen: No symptoms or risks identified at this time. Initial Sepsis Screen: Does the patient meet any 2 criteria? No. Patient's initial sepsis screen is negative. Does the patient have a suspected source of infection? No. Patient's initial sepsis screen is negative. Risk Assessment: Do you want to hurt yourself or someone else? Patient reports no desire to harm self or others. Onset of symptoms was May 26, 2020. 08:21 Method Of Arrival: EMS: [facility] ph 08:21 Acuity: SUNDAY 3 ph Historical: - Allergies: 08:24 Demerol; ph 08:24 Methotrexate; ph 08:24 meloxicam; ph - PMHx: 08:24 ADD/ADHD; Pancreatitis; Rheumatoid Arthritis; Seizures; TIA; pancreatic cancer; ph - PSHx: 08:24 Cholecystectomy; stents in pancreas; ph - Immunization history:: Adult Immunizations unknown. Screenin:24 Abuse screen: Denies threats or abuse. Denies injuries from another. Nutritional ph screening: No deficits noted. Tuberculosis screening: No symptoms or risk factors identified. Fall Risk Fall in past 12 months (25 points). No secondary diagnosis (0 pts). IV access (20 points). Ambulatory Aid- None/Bed Rest/Nurse Assist (0 pts). Gait- Normal/Bed Rest/Wheelchair (0 pts) Mental Status- Oriented to own ability (0 pts). Total Bernal Fall Scale indicates Low Risk Score (25-44 pts). Fall prevention measures have been instituted. Side Rails Up X 2 Placed close to Nursing Station Frequent Obs/Assesments occuring As available Patient and Family Educated on Fall Prevention Program and strategies. Assessment: 08:25 General: Appears in no apparent distress. uncomfortable, well groomed, Behavior is ph calm, cooperative, appropriate for age. Pain: Complains of pain in lumbar area Pain radiates to right hip. Neuro: Level of Consciousness is awake, alert, obeys commands, Oriented to person, place, time, situation. Cardiovascular: Capillary refill < 3 seconds in bilateral fingers Patient's skin is warm and dry. Respiratory: Airway is patent Respiratory effort is even, unlabored. Derm: Skin is intact, Skin is pink, warm \\T\\ dry. Musculoskeletal: Circulation, motion, and sensation intact. Range of motion: intact in all extremities. 09:34 Reassessment: Patient appears in no apparent distress at this time. Patient and/or ph family updated on plan of care and expected duration. Pain level reassessed. Patient is alert, oriented x 3, equal unlabored respirations, skin warm/dry/pink. Pt taken to MRI via wheelchair. 10:30 Reassessment: Patient appears in no apparent distress at this time. Patient and/or ph family updated on plan of care and expected duration. Pain level reassessed. Patient is alert, oriented x 3, equal unlabored respirations, skin warm/dry/pink. 11:31 Reassessment: Patient appears in no apparent distress at this time. Patient and/or ph family updated on plan of care and expected duration. Pain level reassessed. Patient is alert, oriented x 3, equal unlabored respirations, skin warm/dry/pink. Pt provided w/ walker and d/c home, ambulated to lobby. Vital Signs: 08:21 BP 170 / 55; Pulse 74; Resp 18; Temp 97.5; Pulse Ox 100% ; Weight 72.57 kg; Height 5 ph ft. 1 in. (154.94 cm); 09:34 BP 165 / 56; Pulse 72; Resp 18; Pulse Ox 98% on R/A; ph 11:00 BP 147 / 64; Pulse 68; Resp 18; Temp 97.9; Pulse Ox 99% on R/A; ph 08:21 Body Mass Index 30.23 (72.57 kg, 154.94 cm) ph ED Course: 08:20 Patient arrived in ED. ds1 08:20 Celia Galvan FNP-C [facility]. snw 08:21 Rik Olson MD is Attending Physician. snw 08:21 Rosemarie San, RN is Primary Nurse. ph 08:23 Triage completed. ph 08:23 Arm band placed on Patient placed in an exam room, on a stretcher, on pulse oximetry. ph 08:25 Patient has correct armband on for positive identification. Bed in low position. Call ph light in reach. Side rails up X 1. Pulse ox on. NIBP on. Door closed. Noise minimized. Warm blanket given. 08:36 CT Pelvis wo Cont In Process Unspecified. EDMS 08:36 CT Lumbar Spine Wo Con In Process Unspecified. EDMS 09:47 MRI Lumbar Spine wo Con In Process Unspecified. EDMS 11:31 No provider procedures requiring assistance completed. IV discontinued, intact, ph bleeding controlled, No redness/swelling at site. Pressure dressing applied. Administered Medications: 08:55 Drug: Valium 10 mg Route: IVP; Site: right forearm; ph 11:09 Follow up: Response: No adverse reaction ph 11:08 Drug: [place] (7.5 mg-325 mg) 1 tabs Route: PO; ph 11:08 Follow up: Response: No adverse reaction ph Outcome: 11:14 Discharge ordered by . snw 11:32 Discharged to home ambulatory. ph 11:32 Condition: good 11:32 Discharge instructions given to patient, Instructed on discharge instructions, follow up and referral plans. medication usage, Demonstrated understanding of instructions, follow-up care, medications, Prescriptions given X 2. 11:34 Patient left the ED. ph Signatures: Dispatcher [employer] EDMS Celia Galvan FNP-C SOLUTIONS ENGINEER-Csnw Dianna Randall ds1 Rosemarie San, RN RN ph
[2020-05-30 12:29] VITALS: BP 147/64; TEMP 97.9; O2SAT 99
== END 2020-05-26 11:34 | disposition home or self-care (01) ==
LOC: ER 08:14
DX: S32.040A Wedge compression fracture of fourth lumbar vertebra, initial encounter for closed fracture (principal); X50.0XXA Overexertion from strenuous movement or load, initial encounter; Y93.89 Activity, other specified; Y92.9 Unspecified place or not applicable; Z88.6 Allergy status to analgesic agent
CPT/HCPCS: 85025; 80048; 36415; 72131; 72192; 72148; 96374; 99284; J3360